=== PATIENT | female | born 1960 | race Caucasian/White ===

== ENCOUNTER → 2016-05-01 | Outpatient (CLI) | payer OTHER ==
--- NOTE | 2016-05-01 22:43 | DI ---
ULTRASOUND OF THE ANTERIOR TRIANGLE OF THE NECK, 05/01/2016 9:48 AM: Clinical History: Palpable lump in the superior aspect of the anterior triangle of the right side of the neck anterior to the origin of the sternocleidomastoid muscle. Previous Exam: None at this facility. Scans are performed through the region anterior to the mastoid bone and posterior ear bilaterally by myself. Color Doppler ultrasound was utilized. Scans were initiated with the high-resolution linear r ay probe but completed with the high-resolution high-frequency hockey-stick probe. Scans of the left side of the upper neck between the ear and mastoid bone were performed and no abnor mality is noted. The side was used as a control. Scans were performed in the same fashion through the right side where the patient indicated the lump is located. No discrete mass is identified and only fibrous type connective tissue was visualized bilaterally. Slightly inferior to the area of question on the right side is a small but normal-appearing lymph node with a fatty asymmetric hilum. This smal l lymph node is clinically palpable but no discrete mass or discernible asymmetry was palpable in eit her over the area of question or on the control side. Readin. No discernible abnormality could be identified toward the apex of the anterior triangle of the ne ck at the location where the patient indicated the lump was situated. 2. In view of the history that this abnormality has been present for 6 months, and the fact that is located between the mastoid bone and the ramus of the mandible, further imaging would be required if a more definitive evaluation of this area is desired. This can either be performed with a CT scan of the neck with IV contrast or an MRI scan of the neck.
== END ==
LOC: US 09:44
PROVIDERS: ATTEND Nurse Practitioner Family
DX: R22.1 Localized swelling, mass and lump, neck (principal)
CPT/HCPCS: 76536

== ENCOUNTER → 2016-05-02 | Outpatient (CLI) | payer OTHER ==
[2016-05-02 10:26] LABS: BASOPHILS # (AUTO) 0.04 10*3/UL; BASOPHILS % (AUTO) 0.9 % (0-1); HEMATOCRIT 42.9 % (37.0-47.0); HEMOGLOBIN 14.1 g/dL (12.0-16.0); IMM GRAN % (AUTO) 0 % (0-5); IMM GRAN# (AUTO) 0 10*3/UL; LYMPHOCYTES # (AUTO) 1.28 10*3/uL; LYMPHOCYTES % (AUTO) 30.2 % (10-50); MEAN CORPUSCULAR HEMOGLOBIN 27.2 PG (27-31); MEAN CORPUSCULAR HGB CONC 32.9 g/dL (33-37); MEAN PLATELET VOLUME 10.4 FL (7.4-12.2); MONOCYTES # (AUTO) 0.42 10*3/UL (0.3-0.8); MONOCYTES % (AUTO) 9.9 % (5-15); NEUTROPHILS # (AUTO) 2.29 10*3/UL; RDW COEFFICIENT OF VARIATION 14.1 % (11.5-14.5); RED BLOOD COUNT 5.19 10^6/uL (4.20-5.40); WHITE BLOOD COUNT 4.24 10^3/uL (4.8-10.8)
[2016-05-02 10:28] LABS: PLATELET MORPHOLOGY COMMENT NORMAL MORPHOLOGY (NORM)
[2016-05-02 10:53] LABS: ASPARTATE AMINO TRANSFERASE 57 IU/L (8-39); BILIRUBIN,TOTAL 0.5 mg/dL (0.3-1.2); BLOOD UREA NITROGEN 23 mg/dL (7-22); BUN/CREATININE RATIO 28.75 (6-20); CALCIUM 9.5 mg/dL (8.7-10.7); CHLORIDE 106 meq/L (98-112); CREATININE 0.8 mg/dL (0.50-1.20); EST GLOMERULAR FILTRATION > 60 (>60 ml/min/1.73m(2)); HDL CHOLESTEROL 100 mg/dL (40-150); POTASSIUM 4.1 meq/L (3.8-5.2); SODIUM 142 meq/L (135-145); TOTAL PROTEIN 7.6 g/dL (6.1-8.0); TRIGLYCERIDES 61 mg/dL (44-200)
[2016-05-02 11:10] LABS: FREE T4 (FREE THYROXINE) 1.2 ng/dL (0.93-1.71)
[2016-05-02 11:12] LABS: CREATININE, URINE 86.3 MG/DL (15-500)
[2016-05-02 15:42] LABS: GLUCOSE 44 mg/dL (78-110)
[2016-05-03 17:52] LABS: TISSUE TRANSGLUT AB IGA <1.2 U/mL (())
[2016-05-04 18:34] LABS: IGA SERUM 75 mg/dL (61 - 356)
== END ==
LOC: LAB 10:02
PROVIDERS: ATTEND Pediatrics Pediatric Endocrinology
DX: E10.649 Type 1 diabetes mellitus with hypoglycemia without coma (principal); Z79.4 Long term (current) use of insulin; E03.9 Hypothyroidism, unspecified; R51 Headache; R00.2 Palpitations; Z96.41 Presence of insulin pump (external) (internal)
CPT/HCPCS: 36415; 80053; 80061; 82043; 82306; 82784; 83516; 84439; 84443; 85025

== ENCOUNTER → 2016-05-08 | Outpatient (CLI) | payer OTHER | LOC: LAB 11:00 | PROVIDERS: ATTEND Nurse Practitioner Family | DX: R51 Headache (principal) | CPT/HCPCS: 36415; 85652 ==

== ENCOUNTER → 2016-05-09 | Outpatient (CLI) | payer OTHER ==
--- NOTE | 2016-05-09 14:34 | DI ---
MRI BRAIN SCAN WITHOUT CONTRAST, 05/09/2016 12:26 PM: Clinical History: Recurrent headaches. Previous Exam: None at this facility. Sequences: Sagittal T1; Axial JASPAL T2 and FLAIR. Axial diffusion weighted images with ADC mapping were also performed. The 4th, 3rd, and lateral ventricles are of normal size, shape, position, and contour for this patien t's age. There are no focal areas of abnormally increased or decreased signal intensity. Diffusion we ighted imaging with ADC mapping is normal. There is no atrophy. There are no extracerebral mantels or shift of the midline structures. The paranasal sinuses are normal. Reading: Normal noncontrast MRI brain scan.
--- NOTE | 2016-05-09 14:34 | DI ---
MR ANGIOGRAPHY OF THE [place], 05/09/2016 12:26 PM: Clinical History: Recurrent headaches. Previous Exam: None at this facility. High resolution axial 3D thin slice time of flight scans are performed for the arterial phase. 3D MIP S reconstructions are obtained. The left vertebral artery is dominant. There is no basilar tip aneurysm or aneurysm arising from the vertebral-basilar branches. Both posterior communicating arteries are large but normal. The anterior communicating artery is markedly atretic but also normal. The A1and A2, and the M1 through M3 branche s bilaterally are normal. Reading: Normal MR angiogram scan of the [place].
== END ==
LOC: MRI 12:18
PROVIDERS: ATTEND Nurse Practitioner Family
DX: R51 Headache (principal)
CPT/HCPCS: 70544; 70551

== ENCOUNTER → 2016-05-21 | Outpatient (CLI) | payer OTHER ==
--- NOTE | 2016-05-21 10:54 | DI ---
MRI ORB/FACE AND/OR NCK W/O CN,05/21/2016 9:04 AM: Clinical History: Mass in the right side of the neck. Previous Exam: CT soft tissue of the neck performed May 07, 2013 Findings: Multiplanar MR images are obtained through the neck There are multiple cervical lymph nodes none of which are pathologic by size criteria. There is one o n the right just superficial to the right masseter which is the most prominent, and measures 1.6 x 0. 6 cm. There is no evidence of fluid collection. The posterior fossa is unremarkable. The internal auditory canals are normal as well. The paranasal s inuses and intraorbital structures are unremarkable. The thyroid is within normal limits. The cervical spine demonstrates anatomic alignment. Vertebral body height is preserved. Intervertebra l disc height is also preserved. The submandibular glands and parotid glands are within normal limits . The brachial plexus is not well evaluated, but visualized portions appear normal. Signal within the s rosalba cord is also normal. There is no visible central canal nor neural foraminal narrowing. The parapharyngeal fat is normal and symmetric. Impression: 1. No definite mass. 2. There is a lymph node just superficial to the right masseter which appears to have been present on the prior exam from 2013, and does not appear to be pathological.
== END ==
LOC: MRI 09:02
PROVIDERS: ATTEND Nurse Practitioner Family
DX: R22.1 Localized swelling, mass and lump, neck (principal)
CPT/HCPCS: 70540

== ENCOUNTER 2016-06-02 18:56 | Emergency (ER) | payer OTHER ==
[2016-06-02] MEDS ORDERED: Sodium Chloride 0.9% 1,000 ML PRIMARY IV ONE ×2 (19:14→20:53)
[2016-06-02] MEDS ORDERED: NORMAL SALINE 10 ML SYRINGE FLUSH IVP PRN (19:14)
[2016-06-02 19:35] LABS: EOSINOPHILS % (AUTO) 2.5 % (0-8); HEMATOCRIT 41.4 % (37.0-47.0); HEMOGLOBIN 14.3 g/dL (12.0-16.0); MEAN CORPUSCULAR HEMOGLOBIN 27.7 PG (27-31); MEAN CORPUSCULAR HGB CONC 34.5 g/dL (33-37); MEAN PLATELET VOLUME 10.8 FL (7.4-12.2); RED BLOOD COUNT 5.16 10^6/uL (4.20-5.40)
[2016-06-02 19:37] LABS: BASOPHILS # (AUTO) 0.19 10*3/UL; BASOPHILS % (AUTO) 3.4 % (0-1); IMM GRAN % (AUTO) 0 % (0-5); IMM GRAN# (AUTO) 0 10*3/UL; LYMPHOCYTES # (AUTO) 2.19 10*3/uL; LYMPHOCYTES % (AUTO) 39.5 % (10-50); MONOCYTES # (AUTO) 0.69 10*3/UL (0.3-0.8); MONOCYTES % (AUTO) 12.5 % (5-15); NEUTROPHILS # (AUTO) 2.33 10*3/UL; NEUTROPHILS % (AUTO) 42.1 % (50-80); RDW COEFFICIENT OF VARIATION 13.8 % (11.5-14.5); WHITE BLOOD COUNT 5.54 10^3/uL (4.8-10.8)
[2016-06-02 19:46] LABS: ASPARTATE AMINO TRANSFERASE 46 IU/L (8-39); BILIRUBIN,TOTAL 0.6 mg/dL (0.3-1.2); BLOOD UREA NITROGEN 11 mg/dL (7-22); BUN/CREATININE RATIO 13.75 (6-20); C-REACTIVE PROTEIN 1.2 mg/dL (0.0-0.9); CHLORIDE 101 meq/L (98-112); CREATININE 0.8 mg/dL (0.50-1.20); EST GLOMERULAR FILTRATION > 60 (>60 ml/min/1.73m(2)); GLUCOSE 214 mg/dL (78-110); MAGNESIUM 1.6 mg/dL (1.6-2.4); POTASSIUM 3.8 meq/L (3.8-5.2); SODIUM 136 meq/L (135-145); TOTAL PROTEIN 7.3 g/dL (6.1-8.0)
--- NOTE | 2016-06-02 19:52 | PDOC ---
General Adult HPI - General Chief Complaint: Diabetic Complaint Stated Complaint: KETONES IN URINE Date Seen by Provider: 06/02/16 Time Seen by Provider: 19:10 Source: POSITIVE: Patient Exam Limitations: POSITIVE: No limitations Nurse's Notes Reviewed & Considered: Yes - History of Present Illness Initial Comment: The patient is a 55-year-old female who presents to the emergency room with concern regarding ketones in her urine. She has been a type I diabetic for 45 years and describes herself as a brittle diabetic. She states that for the past week or so she has had no appetite and has had some diarrhea. She has had some associated nausea however has not had any vomiting. She states that her intake has been markedly diminished over the past for 5 days since she's been feeling ill. Initially she was having a fair amount of loose watery stool. This seems to have tapered off now at this point. She denies any abdominal pain per se although she feels somewhat full. She denies urinary symptoms. She has not had any fevers or chills, chest pain. She states that her blood sugars have actually been running pretty good generally below 200. Her blood sugar on presentation is just above 200 which she states is the highest that it' s been all week which is good for her. She does however have a perez tone kid at home and has been running moderate ketones in her urine for the past couple of days. She has been trying to push oral fluids today however continues to have ketones in her urine which made her concerned. She has had severe diabetic ketoacidosis in the past associated with illness. This evening when she stood up she had some increased heart rate and a little bit of lightheadedness which she attributes possibly to being a little dehydrated. She does not have any known history of heart disease other than SVT. Have you received a tetanus shot in the past 10 years?: Yes - Patient Home Medications Home Medications: Home Medications Docusate Sodium [Colace] 4 cap PO QHS cap 04/20/13 Fexofenadine HCl [Amina] 1 tab PO QD tab 04/20/13 Insulin Pump Cartridge [Cartridge Stamped] 1 each SQ continuous #3 box 04/21/13 Metoclopramide HCl 2 tsp PO QID PRN #360 ml 08/24/14 Ciclopirox 6.6 ml TOPICAL DAILY #1 bottle 12/28/14 Venlafaxine HCl [Venlafaxine HCl ER] 1 cap PO DAILY #90 cap 09/04/15 Levalbuterol Tartrate [Xopenex Hfa] 1 - 2 puff INH Q6H PRN #1 inh 11/01/15 Fluticasone Propionate [Flovent Hfa] 2 puff INH BID #1 inh 01/17/16 Insulin, Lispro [Humalog] 80 unit SQ DAILY 90 Days 03/04/16 Promethazine HCl 1 tab PO Q4-6H PRN #60 tab 03/19/16 Blood-Glucose Meter [Contour Next] 1 each MC 6-12x a day #400 each 05/21/16 Glucagon,Human Recombinant [Glucagon Emergency Kit] 1 mg IJ ONCE #2 each Insulin Glargine SoloStar Inj [Lantus Solostar Inj] 4 units SUBCUT BID #1 box Insulin Lispro Flexpen Inj [Humalog Flexpen Inj] 8 unit SQ AC #1 box 05/21/16 Levothyroxine Sodium 1 tab PO DAILY #90 tab 05/21/16 Urine Acetone Test,Strips [Ketone] 1 each QAM #50 strip 05/21/16 Lidocaine [Lidoderm] 1 patch TRANSDERM DAILY #90 patch 05/23/16 Olopatadine HCl [Patanol] 1 drop EACH EYE QD #3 bottle 05/28/16 - Patient Allergies Allergies/Adverse Reactions: Allergies Allergy/AdvReac Type Severity Reaction Status Date / Time bacitracin zinc Allergy Intermediate burn,bliste Verified 06/02/16 19:08 [From Neosporin r ([id number])] neomycin sulfate Allergy Intermediate burn,bliste Verified 06/02/16 19:08 [From Neosporin r ([id number])] polymyxin B Allergy Intermediate burn,bliste Verified 06/02/16 19:08 [From Neosporin r ([id number])] bacitracin Allergy blister,bur Verified 06/02/16 19:08 n povidone-iodine Allergy .BURNING Verified 06/02/16 19:08 [From Betadine] soap [From Betadine] Allergy .BURNING Verified 06/02/16 19:08 Sulfa (Sulfonamide Allergy HIVES Verified 06/02/16 19:08 Antibiotics) Past Medical History - heen HEENT History: Cataracts Cardiovascular History: Denies History Respiratory History: Denies History Additional Respiratory History: ACUTE BRONCHITIS Gastrointestinal History: Other (please comment) Additional Gastrointestinal History: GASTROPARESIS/DIFFICULTY SWALLOWING Genitourinary History: Denies History Endocrine History: Type 1 Diabetes, Hypothyroidism Additional Endocrine History: GOITER Musculoskeletal History: Arthritis Prosthesis or Implant: Yes (L THUMB) Neurological History: Denies History Blood Disorders: Denies History Psychiatric History: Denies History History of Sexually Transmitted Diseases: No Cancer History: Denies History History of MDRO: No History of Other Communicable Diseases: Yes (MEASLES, VARICELLA) Alcohol Use: None Substance Use Type: None Previous Surgical History: Yes Type / Date of Surgery: R CARPAL TUNNEL RELEASE 1999/TRIGGER FINGER X10 FROM [id number]/LEFT KNEE SCOPE 2009/SHOULDER SCOPE RELEASE LEFT FROZEN SHOULDER 2006/ SINUS SURGERY 1993 Anesthesia Reactions: No Malignant Hyperthermia: No Significant Family History: No pertinent family hx Past Medical History Reviewed: Reviewed - No Changes ROS - Limitations ROS Limitations: No Limitations Constitution: DENIES: Chills, Fever Cardiovascular: REPORTS: Heart Palpitations. DENIES: Chest Pain, Blood Pressure Problem, Edema Respiratory: DENIES: Cough Non Productive, Cough Productive Neurological: REPORTS: Dizziness. DENIES: Headache, Numbness, Weakness Gastrointestinal: REPORTS: Nausea, Diarrhea, Black Stools (She had some dark stringy stools the last couple of days although no BM today). DENIES: Abdominal Pain, Vomitting Musculoskeletal: REPORTS: Denies MS Symptoms Genitourinary: REPORTS: Denies Symptoms Eyes: REPORTS: Denies Symptoms ENT: REPORTS: Denies Symptoms Skin: DENIES: Rash General Adult Exam - General Appearance General Appearance: POSITIVE: Alert, Cooperative, No Acute Distress - HEENT HEENT: POSITIVE: Head Inspection Nml, Pharynx Inspect. Nml, Dry Mucous Membranes - Neck Neck: POSITIVE: Normal Inspection. NEGATIVE: Lymphadenopathy - Respiratory Respiratory: POSITIVE: No Respiratory Distress, Breath Sounds Normal - Cardiovascular Cardiovascular: POSITIVE: Regular Rate & Rhythm, No Murmur Peripheral Pulses: Dorsalis-pedis (R): 2+, Dorsalis-pedis (L): 2+ - Abdomen Abdomen: Soft: (All Quadrants), Denies Tenderness: (All Quadrants), No Distention: (All Quadrants) - Back Back: NEGATIVE: CVA Tenderness - Skin Skin: POSITIVE: Normal Color. NEGATIVE: Rash - Extremities Extremity: Normal ROM: (All Extremities), Normal Inspection: (All Extremities) General Adult Progress - Results Reviewed by me Lab Results Reviewed: Yes Lab Results:: Laboratory Results 06/02/16 06/02/16 06/02/16 Range/Units 19:27 19:30 20:35 WBC 5.54 (4.8-10.8) 10^3/uL RBC 5.16 (4.20-5.40) 10^6/uL Hgb 14.3 (12.0-16.0) g/dL Hct 41.4 (37.0-47.0) % MCV 80.2 L (81-99) FL MCH 27.7 (27-31) PG MCHC 34.5 (33-37) g/dL RDW Std Deviation 40.2 (39-50) fL RDW Coeff of Pattie 13.8 (11.5-14.5) % Plt Count 254 (140-350) 10*3/uL MPV 10.8 (7.4-12.2) FL Immature Gran % (Auto) 0 (0-5) % Neut % (Auto) 42.1 L (50-80) % Lymph % (Auto) 39.5 (10-50) % [place] % (Auto) 12.5 (5-15) % Eos % (Auto) 2.5 (0-8) % Baso % (Auto) 3.4 H (0-1) % Immature Gran # (Auto) 0 10*3/UL Neut # (Auto) 2.33 10*3/UL Lymph # (Auto) 2.19 10*3/uL [place] # (Auto) 0.69 (0.3-0.8) 10*3/UL Eos # (Auto) 0.14 10*3/UL Baso # (Auto) 0.19 10*3/UL WBC Morphology Comment See comments (NORM) Plt Morphology Comment Normal morphology (NORM) RBC Morph Comment Normal morphology (NORM) VBG pH 7.39 (7.32-7.42) VBG pCO2 34 L (45-55) mmHg VBG HCO3 20 L (22-26) mmol/L VBG Base Excess -5 L (-2-2) MMOL/L Sodium 136 (135-145) meq/L Potassium 3.8 (3.8-5.2) meq/L Chloride 101 (98-112) meq/L Carbon Dioxide 23 (23-33) meq/L Anion Gap 12 (5-20) BUN 11 (7-22) mg/dL Creatinine 0.8 (0.50-1.20) mg/dL Estimated GFR > 60 (>60 ml/min/1.73m(2)) BUN/Creatinine Ratio 13.75 (6-20) Glucose 214 H (78-110) mg/dL Calculated Osmolality 286.0 (267-292) mOsm/kg Calcium 9.0 (8.7-10.7) mg/dL Magnesium 1.6 (1.6-2.4) mg/dL Total Bilirubin 0.6 (0.3-1.2) mg/dL AST 46 H (8-39) IU/L ALT 65 H (9-52) IU/L Alkaline Phosphatase 99 (38-126) IU/L C-Reactive Protein 1.2 H (0.0-0.9) mg/dL Total Protein 7.3 (6.1-8.0) g/dL Albumin 4.0 (3.5-4.8) g/dL Globulin 3.3 (2.50-4.10) g/dL Albumin/Globulin Ratio 1.20 L (1.3-2.0) mg/g Ur Collection Type Clean catch urine Urine Color Yellow Urine Clarity Clear (CLEAR) Urine pH 5.5 (5.0-8.5) Ur Specific [place] 1.006 (1.005-1.030) Urine Protein Negative (NEG) mg/dl Urine Glucose (UA) 100 (NEG) mg/dL Urine Ketones 40 (NEG) Urine Occult Blood Negative (NEG) Urine Nitrate Negative (NEG) Urine Bilirubin Negative (NEG) Urine Urobilinogen 0.2 (0.2) EU/dL Ur Leukocyte Esterase Negative (NEG) Ur Culture Indicated? Culture not set - Patient's Progress MDM / ED Course: Initial orthostatic vital signs are unremarkable. An IV was established and she did receive a 1 L bolus of normal saline. Her initial venous blood gas revealed a normal pH of 7.39 with a bicarbonate of 20. Her other blood work was all essentially unremarkable as well and urinalysis was negative for infection. She did continue to have some ketones in her urine. At this point the ketosis is most likely secondary to lack of oral intake over the past 4 or 5 days. She does not have any evidence of diabetic ketoacidosis. Her liver enzymes were also mildly elevated however this was noted on a previous blood draw and has improved slightly. The exact etiology of her stomach upset and diarrhea is unclear however may be viral in etiology. Her diarrhea seems to have significantly decreased over the past 24 hours. She is advised to continue to push fluids. She did receive a second liter of normal saline here prior to discharge. She will return to the emergency room she develops any increased abdominal pain, dehydration, elevated blood sugar, any worsening or change in symptoms. She'll follow-up with primary care in 2-3 days. - Consult Counseled: POSITIVE: Patient, Family, RE: Lab Results, RE: Radiology Results, RE : DX, RE: Need for F/U Patient Care Time - Estimated PCT Patient Care Time (In Minutes): 25 Vital Signs - Recent Vital Signs Vital Signs: Vital Signs (Last 8 hours) Temp Pulse Pulse Pulse Pulse Resp BP 06/02/16 20:28 67 66 75 06/02/16 19:20 79 83 85 06/02/16 18:56 97.7 F 100 18 165/81 BP BP BP Pulse Ox 06/02/16 20:28 142/69 137/69 136/69 06/02/16 19:20 145/69 142/81 148/77 06/02/16 18:56 95 - VS Reviewed Vital Signs Reviewed: Yes Discharge Clinical Impression: Dehydration, Enteritis, Diabetes type I Condition: Stable Patient Instructions Given at Discharge: Dehydration (ED), Type 1 Diabetes in Adults (ED) Additional Instructions: The blood work done here in the emergency room does not show any evidence of diabetic ketoacidosis. The ketones in the urine or likely secondary to recent decreased oral intake and dehydration as well as lack of oral intake. Continue to push fluids. Monitor blood sugars. Return to the emergency room if elevated blood sugar, increased abdominal pain, fever, continued diarrhea or dehydration, any worsening or change in symptoms. Follow-up with primary care in 2-3 days. Follow Up With: ZURDO WELLS [Primary Care Provider] -
[2016-06-02 19:54] VITALS: RESP 18; TEMP 97.7
[2016-06-02 20:01] LABS: PLATELET MORPHOLOGY COMMENT NORMAL MORPHOLOGY (NORM)
[2016-06-02 20:38] LABS: BILIRUBIN,URINE NEGATIVE (NEG); CLARITY,URINE CLEAR (CLEAR); GLUCOSE, URINE (UA) 100 mg/dL (NEG); LEUKOCYTE ESTERASE ,URINE NEGATIVE (NEG); NITRATE,URINE NEGATIVE (NEG); OCCULT BLOOD,URINE NEGATIVE (NEG); PH,URINE 5.5 (5.0-8.5); PROTEIN,URINE NEGATIVE (NEG); UROBILINOGEN,URINE 0.2 EU/dL (0.2)
[2016-06-02 20:42] LABS: URINE SAMPLE TYPE CLEAN CATCH URINE
== END 2016-06-02 21:38 | disposition home or self-care (01) ==
LOC: ER 18:56
DX: E86.0 Dehydration (principal); K52.9 Noninfective gastroenteritis and colitis, unspecified; E10.69 Type 1 diabetes mellitus with other specified complication; Z79.4 Long term (current) use of insulin
CPT/HCPCS: 36415; 80053; 81003; 82803; 83735; 85025; 86140; 96360; 96361; 99282; 99283; J7030

== ENCOUNTER 2016-08-19 08:03 | Day surgery (SDC) | payer OTHER ==
[~2016-08-19 08:03] MED LIST: LIDOCAINE 2% VISCOUS(20 MG/1 ML) - 15 ML UD CUP PO ONE; LIDOCAINE HCL/PF 2% (20 MG/ML) - 5 ML SYRINGE ONE; MIDAZOLAM 5 MG/1 ML ONE; fentaNYL Inj 100 MCG/2 ML VIAL ONE
[2016-08-19] MEDS ORDERED: LIDOCAINE W/ SODIUM BICARB 0.5 ML SYR ONE (08:07)
[2016-08-19] MEDS ORDERED: Lactated Ringers 1,000 ML PRIMARY IV ONE (08:07)
--- NOTE | 2016-08-19 10:29 | GEN.OPNOTE ---
EGD Operative Note Surgery Date: 08/19/16 Preoperative Diagnosis: Dysphasia Postoperative Diagnosis: Dysphasia. Benign esophageal stricture. Esophageal ulcers Procedure: Esophagogastroduodenoscopy with balloon dilation Surgeon: Theo Pate MD Anesthesia Provider: Morris Mann CRNA Anesthesia Type: MAC Indications: Patient food stuck in her throat. This cleared on its own. Findings: Esophagus: Olympus video EGD scope inserted into the posterior pharynx. Cut ends esophagus under direct visualization. Patient's esophagus was normal except just at the GE junction. She had what appeared to be a benign esophageal stricture with some shallow ulcerations that appear to be healing. GE Junction : GE junction proximal be 40 cm from incisors Fundus : Scope right flexor on itself feeling normal fundus Body : Body was within normal limits Prepyloric : Prepyloric areas within normal limits Small Intestine : First second portion of duodenum within normal limits The scope brought back up to the GE junction. I then placed a balloon dilator through the scope across the GE junction. I then progressively dilated the balloon out to 20 mm. A lubricated flexible upper endoscope was inserted and passed through the esophagus and stomach into the duodenum. Fluids: Please see anesthesia notes in EMR Pathology: None sent
[2016-08-19 11:07] VITALS: RESP 12
[2016-08-19 13:47] VITALS: TEMP 97.6
== END 2016-08-19 11:35 | disposition home or self-care (01) ==
LOC: SDSC 08:03
PROVIDERS: ATTEND Surgery
DX: R13.10 Dysphagia, unspecified (principal); K22.2 Esophageal obstruction; K22.10 Ulcer of esophagus without bleeding
CPT/HCPCS: 43249; J2704; J3010; J2001; J2250; J7120

== ENCOUNTER → 2016-10-14 | Outpatient (CLI) | payer OTHER ==
[2016-10-14 10:29] LABS: BASOPHILS # (AUTO) 0.07 10*3/UL; BASOPHILS % (AUTO) 1.3 % (0-1); EOSINOPHILS % (AUTO) 5.5 % (0-8); HEMATOCRIT 41.3 % (37.0-47.0); HEMOGLOBIN 13.3 g/dL (12.0-16.0); LYMPHOCYTES # (AUTO) 1.36 10*3/uL; MEAN CORPUSCULAR HEMOGLOBIN 27.3 PG (27-31); MEAN CORPUSCULAR HGB CONC 32.2 g/dL (33-37); MEAN CORPUSCULAR VOLUME 84.8 FL (81-99); MEAN PLATELET VOLUME 11.1 FL (7.4-12.2); MONOCYTES # (AUTO) 0.61 10*3/UL (0.3-0.8); MONOCYTES % (AUTO) 11.2 % (5-15); NEUTROPHILS # (AUTO) 3.13 10*3/UL; NEUTROPHILS % (AUTO) 57.1 % (50-80); RED BLOOD COUNT 4.87 10^6/uL (4.20-5.40)
[2016-10-14 10:36] LABS: PLATELET MORPHOLOGY COMMENT NORMAL MORPHOLOGY (NORM); RBC MORPHOLOGY COMMENT NORMAL MORPHOLOGY (NORM); WBC MORPHOLOGY COMMENT NORMAL MORPHOLOGY (NORM)
[2016-10-14 10:46] LABS: BLOOD UREA NITROGEN 25 mg/dL (7-22); BUN/CREATININE RATIO 27.77 (6-20); CALCIUM 8.8 mg/dL (8.7-10.7); CHOL/HDL RATIO 2.23 RATIO (0-4.0); EST GLOMERULAR FILTRATION > 60 (>60 ml/min/1.73m(2)); HDL CHOLESTEROL 104 mg/dL (40-150); HEMOGLOBIN A1C 7.01 % (4.2-6.0); MAGNESIUM 1.6 mg/dL (1.6-2.4); SERUM ALBUMIN 3.8 g/dL (3.5-4.8); SERUM CHOLESTEROL 232 mg/dL (120-200)
[2016-10-14 10:58] LABS: CREATININE, URINE 106.2 MG/DL (15-500)
[2016-10-14 12:04] LABS: FREE T4 (FREE THYROXINE) 1.63 ng/dL (0.93-1.71)
== END ==
LOC: MOB LAB 09:07
PROVIDERS: ATTEND Internal Medicine
DX: E10.9 Type 1 diabetes mellitus without complications (principal); Z79.4 Long term (current) use of insulin; R00.2 Palpitations; E78.5 Hyperlipidemia, unspecified; R53.83 Other fatigue; E03.9 Hypothyroidism, unspecified
CPT/HCPCS: 36415; 80053; 80061; 82043; 82550; 83036; 83735; 84439; 84443; 85025

== ENCOUNTER → 2016-10-23 | Outpatient (CLI) | payer OTHER ==
--- NOTE | 2016-10-29 10:44 | HOLTER ---
[facility] [place] Interpretive Statements This is a 48 hour Holter study done for "palpitations." A diary reports 5 "events" with 3 mentioning symptoms of: "Blood sugar going down, racing heart", "sitting--rate normalized", and "standing in friend's kitchen, racing". The last event did correlate with prolonged PSVT at rate of over 300 BPM for over 20 seconds superimposed on possible atrial flutter with 46 minutes of rate 157 BPM. The other 2 events with no symptoms reported correlated with NSR at normal rates. There were only 13 possible ventricular ectopics. IMPRESSION: Abnormal Holter study with SVT and possible atrial flutter with episodes of 1:1 conduction that at least once did correlate with symptoms. SUGGEST Cardiology consult, avoidance of stimulants, thyroid studies if not done. Electronically Signed On 10-29-16 11:15:55 MDT by Sudhakar Zimmer MD [email or web address]
== END ==
LOC: RT 12:53
PROVIDERS: ATTEND Internal Medicine
DX: R00.2 Palpitations (principal)
CPT/HCPCS: 93225; 93226; 93227

== ENCOUNTER → 2016-12-04 | Outpatient (CLI) | payer OTHER | LOC: SLEEP LAB 20:05 | PROVIDERS: ATTEND Nurse Practitioner Family | DX: G47.33 Obstructive sleep apnea (adult) (pediatric) (principal); G47.34 Idiopathic sleep related nonobstructive alveolar hypoventilation | CPT/HCPCS: 95811 ==

== ENCOUNTER 2017-05-27 11:38 | Observation (INO) ==
--- NOTE | 2017-05-27 12:59 | DI ---
PA /LATERAL CHEST X-RAY, 05/27/2017 12:26 PM : Clinical History: Fever. Cough. Previous Exam: None at this facility. There is no acute soft tissue or bony abnormality. Heart size is normal. There is increased density i n the right middle lobe territory consistent with either atelectasis or a very early pneumonia. No pl eural effusions are noted. Mediastinal structures are normal. There are no pulmonary nodules. Reading: There is either atelectasis or a very early pneumonia in the right middle lobe.
--- NOTE | 2017-05-27 13:46 | PDOC ---
Upper Respiratory HPI - General Chief Complaint: Cough / URI Stated Complaint: COUGH/WINN/BODY ACHES/FEVER/CHILLS x6 DAYS Date Seen by Provider: 05/27/17 Time Seen by Provider: 13:00 Source: POSITIVE: Patient - History of Present Illness Initial Comments: This is a very nice 56-year-old woman who presents to the emergency department with several days worth of cough and fever and chills and feeling very poorly. Shehe thought maybe she was improving some and then today got substantially worse to the point she's not able to get up and around very well she feels extremely wiped out. She has a very harsh and somewhat productive cough and get short of breath after cough. She has type II diabetes. She has not had history of pneumonia in the past has not had significant respiratory illness or chronic disease at all the past. - Patient Home Medications Home Medications: Home Medications Insulin Pump Cartridge [Cartridge Stamped] 1 ea SQ continuous #3 box 04/21/13 Olopatadine HCl [Patanol] 1 drp EACH EYE QD #3 bottle 05/28/16 Lidocaine [Lidoderm] 1 patch TRANSDERM DAILY #90 patch 10/01/16 Promethazine HCl 1 tab PO Q4-6H PRN #60 tab 10/01/16 Levothyroxine Sodium 1 tab PO DAILY #90 tab 10/14/16 Venlafaxine HCl [Venlafaxine Hcl Er] 1 cap PO DAILY #30 cap 10/22/16 lidocaine 5 % topical patch 1 patch TRANSDERM QDAY #1 patch 12/09/16 venlafaxine ER 150 mg capsule,extended release 24 hr 150 mg PO QDAY #90 cap promethazine 25 mg tablet 25 mg PO Q4-6H PRN #60 tab 12/18/16 docusate sodium 100 mg capsule 400 mg PO QHS cap 01/29/17 ciclopirox 8 % topical solution 1 applic TOPICAL QDAY #1 bottle 03/14/17 estradiol 10 mcg vaginal tablet 10 mcg VAGINAL 3XW #36 tab 03/14/17 fexofenadine 180 mg tablet 180 mg PO QDAY tab 03/14/17 famotidine 20 mg tablet 20 mg PO BID #120 tab 05/05/17 Synthroid 125 mcg tablet 125 mcg PO .qod #30 tab NS 05/16/17 Synthroid 137 mcg tablet 137 mcg PO .qod #30 tab NS 05/16/17 clobetasol 0.05 % topical ointment 1 applic TOPICAL BID PRN #60 g 05/19/17 fluticasone 44 mcg/actuation HFA aerosol inhaler 2 inh INH BID #1 inh 05/19/17 insulin lispro 100 unit/mL subcutaneous pen 8 unit SQ AC #1 box 05/19/17 levalbuterol HFA 45 mcg/actuation aerosol inhaler 2 puff INH Q6H PRN #3 inh 08/29 metoclopramide 5 mg/5 mL oral solution 10 mg PO QID PRN #360 ml 05/19/17 insulin lispro 100 unit/mL subcutaneous solution 80 unit SUBCUT QDAY 90 Days #9 vial 05/20/17 acetone (urine) test strips 1 strip MISCELLANEOUS QAM strip 05/22/17 blood sugar diagnostic strips 1 strip MISCELLANEOUS 6-12x/day strip 05/22/17 blood-glucose meter 1 ea MISCELLANEOUS 6-12x/day ea 05/22/17 glucagon (human recombinant) 1 mg injection kit 1 mg IM ONCE PRN ea 05/22/17 insulin glargine 100 unit/mL (3 mL) subcutaneous pen 4 unit SUBCUT BID PRN #3 ml 05/22/17 - Patient Allergies Allergies/Adverse Reactions: Allergies 3 Allergy/AdvReac Type Severity Reaction Status Date / Time bacitracin zinc Allergy Intermediate burn,bliste Verified 05/27/17 12:21 [From Neosporin r ([id number])] neomycin sulfate Allergy Intermediate burn,bliste Verified 05/27/17 12:21 [From Neosporin r ([id number])] polymyxin B Allergy Intermediate burn,bliste Verified 05/27/17 12:21 [From Neosporin r ([id number])] bacitracin Allergy blister,bur Verified 05/27/17 12:21 n povidone-iodine Allergy .BURNING Verified 05/27/17 12:21 [From Betadine] soap [From Betadine] Allergy .BURNING Verified 05/27/17 12:21 Sulfa (Sulfonamide Allergy HIVES Verified 05/27/17 12:21 Antibiotics) Past Medical History - heen HEENT History: Cataracts Additional HEENT History: GLASSES Cardiovascular History: Hyperlipidemia Additional Cardiovasular History: SVT, pt reports able to convert to sinus rhythm by vagal or massage. AVNRT Respiratory History: Denies History Additional Respiratory History: ACUTE BRONCHITIS. REACTIVE AIRWAY DISEASE. JP Gastrointestinal History: Other (please comment) Additional Gastrointestinal History: GASTROPARESIS/DIFFICULTY SWALLOWING. 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 HASHIMOTOS THROIDITIS Musculoskeletal History: Arthritis, Osteoarthritis Prosthesis or Implant: Yes (L THUMB) Additional Musculoskeletal History: left shoulder, knee scopes, bilateral hand surgery, left thumb Neurological History: Denies History Blood Disorders: Denies History, Other (please comment) Additional Blood Disorders History: VITAMIN D DEFICIENCY Psychiatric History: Depression History of Sexually Transmitted Diseases: No Cancer History: Denies History In Past Year Been Physically Harmed or Verbally Threatened: No History of MDRO: No History of Other Communicable Diseases: Yes (MEASLES, VARICELLA) Tobacco Use: Never Smoker Alcohol Use: None In the Past 12 Months, Have Used or Abuse Any Substance: None Previous Surgical History: Yes Type / Date of Surgery: COLONOSCOPY/EGD/R CARPAL TUNNEL RELEASE 1999/TRIGGER FINGER X10 FROM [id number]/LEFT KNEE SCOPE 2009/SHOULDER SCOPE RELEASE LEFT FROZEN SHOULDER 2006/SINUS SURGERY 1993/ LEFT THUMB. ESOPHAGEAL DILATION Anesthesia Reactions: No Malignant Hyperthermia: No Significant Family History: No pertinent family hx Past Medical History Reviewed: Reviewed - No Changes ROS - Limitations ROS Limitations: No Limitations Constitution: REPORTS: Chills, Fever Cardiovascular: REPORTS: Denies Cardiac Symptoms Respiratory: REPORTS: Cough Productive, Shortness Of Breath Neurological: REPORTS: Denies Neuro Symptoms Gastrointestinal: REPORTS: Denies GI Symptoms Genitourinary: REPORTS: Denies Symptoms Upper Respiratory/Fever Exam - General Appearance General Appearance: REPORTS: Alert, Cooperative - HEENT HEENT: POSITIVE: Head Inspection Nml - Respiratory Respiratory: REPORTS: Other (Some coarse rhonchi bilaterally diminished breath sounds in the bases) - Abdomen Abdomen: Soft: (All Quadrants), Normal Bowel Sounds: (All Quadrants), Denies Tenderness: (All Quadrants) - Cardiovascular Cardiovascular: REPORTS: Regular Rate and Rhythm - Skin Skin: REPORTS: Intact, Normal For Race, Warm, Dry - Neurological / Psychological Neurological: POSITIVE: Affect Apporpriate Upper Resp/Fever Progress - Results Reviewed by me Xrays/CTs/US Reviewed by me: Yes Radiology Findings: slight rml infiltrate Lab Results Reviewed by Me: Yes - Patient's Progress MDM / ED Course: This patient looks pretty ill. With rest her oxygen saturations dipped down into the 85 range. She had a normal white count with a normal differential so most likely is all related to a severe influenza. She does however have substantial risk of having a superimposed bacterial illness that may be very early on. I think the better part of messi is to go ahead and start her on some Tamiflu though we may be outside the window to get substantial benefit from it we should probably also monitor her here in the hospital at least the night to make sure that her oxygenation status improved to make sure her white count doesn't bump case will be discussed with the hospitalist. And 2 help provide supplemental oxygen. Patient Care Time - Estimated PCT Patient Care Time (In Minutes): 35 Vital Signs - VS Reviewed Vital Signs Reviewed: Yes Discharge Condition: Fair Follow Up With: CONRAD WELLS [Primary Care Provider] -
[2017-05-27 13:54] LABS: BASOPHILS # (AUTO) 0.04 10*3/UL; BASOPHILS % (AUTO) 0.8 % (0-1); EOSINOPHILS # (AUTO) 0.09 10*3/UL; EOSINOPHILS % (AUTO) 1.8 % (0-8); Hematocrit [HCT] 41.4 % (37.0-47.0); Hemoglobin [HGB] 13.4 g/dL (12.0-16.0); LYMPHOCYTES # (AUTO) 0.88 10*3/uL; MEAN CORPUSCULAR HEMOGLOBIN 27.5 PG (27-31); MEAN CORPUSCULAR HGB CONC 32.4 g/dL (33-37); MEAN CORPUSCULAR VOLUME 84.8 FL (81-99); MEAN PLATELET VOLUME 10.4 FL (7.4-12.2); MONOCYTES # (AUTO) 0.67 10*3/UL (0.3-0.8); MONOCYTES % (AUTO) 13.6 % (5-15); NEUTROPHILS # (AUTO) 3.22 10*3/UL; NEUTROPHILS % (AUTO) 65.7 % (50-80); RED BLOOD COUNT 4.88 10^6/uL (4.20-5.40)
[2017-05-27 13:56] LABS: PLATELET MORPHOLOGY COMMENT NORMAL MORPHOLOGY (NORM); RBC MORPHOLOGY COMMENT NORMAL MORPHOLOGY (NORM); WBC MORPHOLOGY COMMENT NORMAL MORPHOLOGY (NORM)
[2017-05-27 14:10] LABS: BLOOD UREA NITROGEN 12 mg/dL (7-22); BUN/CREATININE RATIO 17.14 (6-20)
[2017-05-27] MEDS ORDERED: OSELTAMIVIR PHOSPHATE 75 MG CAPSULE PO ONE (14:18)
[2017-05-27] MEDS ORDERED: NORMAL SALINE 10 ML SYRINGE FLUSH IVP PRN ×2 (14:44→17:50)
[2017-05-27] MEDS ORDERED: Sodium Chloride 0.9% 1,000 ML PRIMARY IV ONE (14:44)
[2017-05-27] MEDS ORDERED: cefTRIAXone Inj 2 GM in Sodium Chloride 0.9% 100 ML IV ONE (14:44)
--- NOTE | 2017-05-27 15:49 | PDOC ---
HPI - History of Present Illness Date of Service: 05/27/17 Time of Service: 19:00 Chief Complaint: Cough, weakness, low-grade fever one day duration. History of Present Illness: This is a 56 years old female with medical history significant for history of diabetes type I on insulin pump, hypothyroidism and history of esophageal stricture that needed dilatation before who came into the hospital with history of cough not feeling well, weak that started yesterday. She said a few days ago she started to have symptoms of cold with runny nose hoarse voice but yesterday started to cough and feels very weak today didn't eat since yesterday because of that she came into the ER. Evaluation in the ER suggested maybe early pneumonia on the x-ray so she was given antibiotics and was admitted. She denied chest pain, there is no dizziness. No diarrhea no vomiting. Past Medical History Medical History: 1. Type I diabetes on insulin pump. 2. Hypothyroidism. 3. History of esophageal stricture status post dilatation. 4. History of palpitation secondary to SVT she is planning to have a an ablation at one point in time. 5. Sleep apnea on CPAP Family History: Reviewed an Not Pertinent Past Social History: Does not smoke, does not drink. No drugs. to Dr. Batista. Tobacco Use: Never Smoker In the Past 12 Months, Have Used or Abuse Any of the Following Substance: None Alcohol Use: None Medication / Allergies Home Medications: Home Medications 3 Medication Instructions Recorded Confirmed Type Insulin Pump Cartridge [Cartridge 1 ea SQ continuous #3 box 04/21/13 05/27/17 History Stamped] Olopatadine HCl [Patanol] 1 drp EACH EYE QD #3 bottle 05/28/16 05/27/17 Rx Lidocaine [Lidoderm] 1 patch TRANSDERM DAILY #90 patch 10/01/16 Clinic Promethazine HCl 1 tab PO Q4-6H PRN #60 tab 10/01/16 Clinic Levothyroxine Sodium 1 tab PO DAILY #90 tab 10/14/16 Clinic Estrogens, Conj Vaginal Cream 1 unit VAGINAL PRN #2 #2 Samples 10/22/16 Sample [Premarin Vaginal Cream] Sample Venlafaxine HCl [Venlafaxine Hcl 1 cap PO DAILY #30 cap 10/22/16 Clinic Er] lidocaine 5 % topical patch 1 patch TRANSDERM QDAY #1 patch 12/09/16 05/27/17 Clinic venlafaxine ER 150 mg 150 mg PO QDAY #90 cap 12/09/16 05/27/17 Clinic capsule,extended release 24 hr promethazine 25 mg tablet 25 mg PO Q4-6H PRN #60 tab 12/18/16 05/27/17 Rx docusate sodium 100 mg capsule 400 mg PO QHS cap 01/29/17 05/27/17 History ciclopirox 8 % topical solution 1 applic TOPICAL QDAY #1 bottle 03/14/17 History estradiol 10 mcg vaginal tablet 10 mcg VAGINAL 3XW #36 tab 03/14/17 05/27/17 Rx fexofenadine 180 mg tablet 180 mg PO QDAY tab 03/14/17 05/27/17 History famotidine 20 mg tablet 20 mg PO BID #120 tab 05/05/17 05/27/17 Rx Synthroid 125 mcg tablet 125 mcg PO .qod #30 tab NS 05/16/17 05/27/17 Rx Synthroid 137 mcg tablet 137 mcg PO .qod #30 tab NS 05/16/17 05/27/17 Rx clobetasol 0.05 % topical ointment 1 applic TOPICAL BID PRN #60 g 05/19/1705/27 Rx fluticasone 44 mcg/actuation HFA 2 inh INH BID #1 inh 05/19/17 05/27/17 Rx aerosol inhaler insulin lispro 100 unit/mL 8 unit SQ AC #1 box 05/19/17 05/27/17 Rx subcutaneous pen levalbuterol HFA 45 mcg/actuation 2 puff INH Q6H PRN #3 inh 05/19/17 05/27/17 Rx aerosol inhaler metoclopramide 5 mg/5 mL oral 10 mg PO QID PRN #360 ml 05/19/17 05/27/17 Rx solution insulin lispro 100 unit/mL 80 unit SUBCUT QDAY 90 Days #9 vial 05/20/17 Rx subcutaneous solution acetone (urine) test strips 1 strip MISCELLANEOUS QAM strip 05/22/17 05/27/17 History blood sugar diagnostic strips 1 strip MISCELLANEOUS 6-12x/day 05/22/17 05/27/17 History strip blood-glucose meter 1 ea MISCELLANEOUS 6-12x/day ea 05/22/17 05/27/17 History glucagon (human recombinant) 1 mg 1 mg IM ONCE PRN ea 05/22/17 05/27/17 History injection kit insulin glargine 100 unit/mL (3 4 unit SUBCUT BID PRN #3 ml 05/22/17 05/27/17 Rx mL) subcutaneous pen Allergies/Adverse Reactions: Allergies 3 Allergy/AdvReac Type Severity Reaction Status Date / Time bacitracin zinc Allergy Intermediate burn,bliste Verified 05/28/17 07:52 [From Neosporin r ([id number])] neomycin sulfate Allergy Intermediate burn,bliste Verified 05/28/17 07:52 [From Neosporin r ([id number])] polymyxin B Allergy Intermediate burn,bliste Verified 05/28/17 07:52 [From Neosporin r ([id number])] bacitracin Allergy blister,bur Verified 05/28/17 07:52 n povidone-iodine Allergy .BURNING Verified 05/28/17 07:52 [From Betadine] soap [From Betadine] Allergy .BURNING Verified 05/28/17 07:52 Sulfa (Sulfonamide Allergy HIVES Verified 05/28/17 07:52 Antibiotics) Review of Systems - Review of Systems All Systems: Reviewed & No Additional Complaints Except as Stated Exam - General Additional General Exam Details: Looks weak, hoarse voice - Head Head Exam: Normal Inspection - Eye Eye Exam: POSITIVE: Normal Appearance - ENT ENT Exam: POSITIVE: Normal Exam - Neck Neck Exam: Normal Inspection - Respiratory Additional Respiratory Exam Details: Decreased air entry otherwise clear. - Cardiovascular Cardiovascular Exam: POSITIVE: RRR - GI/Abdominal GI/Abdominal Exam: POSITIVE: Normal Bowel Sounds, Non Tender, Non Distended, No Organomegaly - Rectal Rectal Exam: POSITIVE: Deferred - External Exam: POSITIVE: Deferred - Extremities Extremities Exam: POSITIVE: Normal Inspection - Back Back Exam: POSITIVE: Normal Inspection - Neurological Neurological Exam: POSITIVE: Alert, Oriented x 3, CN II-XII Intact, No Facial Droop, Moves All Extremities Equally - Psychiatric Psychiatric Exam: POSITIVE: Normal Affect Results - Labs CBC and BMP: 05/28/17 04:26 05/27/17 13:53 - Imaging Status: Report Reviewed by Me (There is either atelectasis or a very early pneumonia in the right middle lobe.) Assessment and Plan - Patient Problems (1) Pneumonia Current Visit: Yes Status: Acute Comment: She was given Zithromax and the Rocephin after taking blood culture. We'll continue with those. We'll give her some IV fluid. Will repeat her labs in the morning. Code(s): J18.9 - Pneumonia, unspecified organism (2) Diabetes mellitus type 1 Current Visit: No Status: Chronic Comment: Continue insulin pump. Use home protocol. (3) Hypothyroidism Current Visit: Yes Status: Acute Comment: Same medications Code(s): E03.9 - Hypothyroidism, unspecified
[2017-05-27] MEDS ORDERED: LIDOCAINE W/ SODIUM BICARB 0.5 ML SYR SUBD PRN (17:50)
[2017-05-27] MEDS ORDERED: Metoclopramide Tab 10 MG TAB PO PRN (17:52)
[2017-05-27] MEDS: DOCUSATE 100 MG CAPSULE PO SCH (19:38)
[2017-05-27] MEDS: FLUTICASONE PROPIONATE INH SCH (19:45)
[2017-05-27] MEDS: FAMOTIDINE 20 MG TABLET PO SCH (20:05)
[2017-05-27] MEDS: LEVALBUTEROL HCL 0.63 MG/3 ML NEB PRN (21:03)
[2017-05-27] MEDS: Sodium Chloride 0.9% 1,000 ML IV SCH (23:54)
[2017-05-28 05:13] LABS: BASOPHILS # (AUTO) 0.06 10*3/UL; BASOPHILS % (AUTO) 1.3 % (0-1); EOSINOPHILS # (AUTO) 0.16 10*3/UL; EOSINOPHILS % (AUTO) 3.6 % (0-8); Hematocrit [HCT] 39.9 % (37.0-47.0); Hemoglobin [HGB] 12.5 g/dL (12.0-16.0); LYMPHOCYTES # (AUTO) 1.94 10*3/uL; MEAN CORPUSCULAR HEMOGLOBIN 26.8 PG (27-31); MEAN CORPUSCULAR HGB CONC 31.3 g/dL (33-37); MEAN CORPUSCULAR VOLUME 85.4 FL (81-99); MEAN PLATELET VOLUME 10.9 FL (7.4-12.2); MONOCYTES # (AUTO) 0.82 10*3/UL (0.3-0.8); MONOCYTES % (AUTO) 18.3 % (5-15); NEUTROPHILS # (AUTO) 1.49 10*3/UL; NEUTROPHILS % (AUTO) 33.4 % (50-80); RED BLOOD COUNT 4.67 10^6/uL (4.20-5.40)
[2017-05-28] MEDS: Levothyroxine Sodium 100 MCG, Levothyroxine Sodium 50 MCG PO SCH ×2 (05:29)
[2017-05-28 05:54] LABS: PLATELET MORPHOLOGY COMMENT NORMAL MORPHOLOGY (NORM); RBC MORPHOLOGY COMMENT NORMAL MORPHOLOGY (NORM); WBC MORPHOLOGY COMMENT NORMAL MORPHOLOGY (NORM)
[2017-05-28] MEDS: Sodium Chloride 0.9% 1,000 ML IV SCH ×4 (07:38→20:12)
[2017-05-28] MEDS: LEVALBUTEROL HCL 0.63 MG/3 ML NEB PRN ×2 (07:57→19:16)
--- NOTE | 2017-05-28 08:35 | PDOC(PROG) ---
Date and Time of Service: 05/28/2017 8:33 AM Interval History: Patient still feels weak, still coughing. She does not spit the phlegm out. Maybe a little bit better but still not great deal of improvement. Objective : Data - Labs CBC and BMP: 05/28/17 04:26 05/27/17 13:53 Objective : Exam - General Additional General Exam Details: Looks tired, coughing at times during the interview - Head Head Exam: Normal Inspection - Eye Eye Exam: Normal Appearance - ENT ENT Exam: Normal Exam - Respiratory Additional Respiratory Exam Details: Occasional harsh breath sounds.. - Cardiovascular Cardiovascular Exam: RRR - GI/Abdominal GI/Abdominal Exam: Normal Bowel Sounds, Non Tender, Non Distended, Soft, No Organomegaly - Rectal Rectal Exam: Deferred - External Exam: Deferred - Extremities Extremities Exam: Normal Inspection - Back Back Exam: Normal Inspection - Neurological Neurological Exam: Alert, Oriented x 3, CN II-XII Intact, No Facial Droop, Speech Intact / Clear, Moves All Extremities Equally - Psychiatric Psychiatric Exam: Normal Affect - Integumentary Integumentary Exam: Normal Color Assessment and Plan - Patient Problems (1) Pneumonia Current Visit: Yes Status: Acute Comment: Because of the possibility of early pneumonia on the x-ray we started her on antibiotics will continue IV antibiotics. We'll cut back on her IV fluid. Will see how she feels tomorrow and then will decide if we can switch to by mouth. Code(s): J18.9 - Pneumonia, unspecified organism (2) Diabetes mellitus type 1 Current Visit: No Status: Chronic Comment: Continue home protocol (3) Hypothyroidism Current Visit: Yes Status: Acute Comment: Same med Code(s): E03.9 - Hypothyroidism, unspecified
[2017-05-28] MEDS ORDERED: LEVOTHYROXINE 125 MCG TABLET PO SCH (09:00)
[2017-05-28] MEDS: FAMOTIDINE 20 MG TABLET PO SCH ×2 (09:30→20:12)
[2017-05-28] MEDS: VENLAFAXINE XR 75 MG CAP PO SCH (09:30)
[2017-05-28] MEDS: LORATADINE 10 MG TABLET PO SCH (09:30)
[2017-05-28] MEDS: FLUTICASONE PROPIONATE INH SCH ×2 (09:31→19:18)
[2017-05-28] MEDS ORDERED: IBUPROFEN 400 MG TABLET PO PRN (12:54)
[2017-05-28] MEDS: cefTRIAXone Inj 2 GM in Sodium Chloride 0.9% 100 ML IV SCH (16:13)
[2017-05-28] MEDS: DOCUSATE 100 MG CAPSULE PO SCH (17:55)
[2017-05-29] MEDS: LEVALBUTEROL HCL 0.63 MG/3 ML NEB PRN ×2 (05:05→12:39)
[2017-05-29] MEDS: Levothyroxine Sodium 100 MCG, Levothyroxine Sodium 50 MCG PO SCH ×2 (05:16)
[2017-05-29] MEDS: VENLAFAXINE XR 75 MG CAP PO SCH (08:13)
[2017-05-29] MEDS: FAMOTIDINE 20 MG TABLET PO SCH (08:13)
[2017-05-29] MEDS: LORATADINE 10 MG TABLET PO SCH (08:13)
--- NOTE | 2017-05-29 08:36 | DCSUMMARY ---
Hospitalization Summary Admit Date: 05/29/2017 Discharge Date: 05/27/17 Hospital Course: Discharge diagnoses 1. Possible early pneumonia right middle lobe 2. Diabetes 3. History of sleep apnea 4. History of palpitations secondary to SVT she is planning to have a an ablation at one point in the future 5. History of esophageal stricture status post dilatation 6. Hypothyroidism Hospital course This is a 56 years old female with medical history significant for history of diabetes type I on insulin, hypothyroidism and history of esophageal stricture that needed dilatation before who came into the hospital with history of cough and not feeling well. Also feeling weak that started the day before admission. Few days before presentation she did have some cold symptoms with runny nose, hoarse voice but the day before admission she started to have cough and felt weak and she didn't eat since the day before admission because of all the symptoms she came into the ER. Evaluation there suggested maybe an early pneumonia on the x-ray so she was given antibiotics and was admitted. Initially she was given Tamiflu before we get the results of the test which came back negative so did not continue with it. She was admitted to the hospital treated as pneumonia with Zithromax and Rocephin. Gradually there was improvement in her symptoms start to feel better on the day of discharge and we thought that she could be discharged home and follow-up with her primary. Blood culture remains negative. Discharge instruction Diet diabetic Medications Current Medication(s) 3 Medication Instructions Recorded Confirmed Type Insulin Pump Cartridge [Cartridge 1 ea SQ continuous #3 box 04/21/13 05/27/17 History Stamped] Olopatadine HCl [Patanol] 1 drp EACH EYE QD #3 bottle 05/28/16 05/27/17 Rx Lidocaine [Lidoderm] 1 patch TRANSDERM DAILY #90 patch 10/01/16 Clinic Promethazine HCl 1 tab PO Q4-6H PRN #60 tab 10/01/16 Clinic Levothyroxine Sodium 1 tab PO DAILY #90 tab 10/14/16 Clinic Estrogens, Conj Vaginal Cream 1 unit VAGINAL PRN #2 #2 Samples 10/22/16 Sample [Premarin Vaginal Cream] Sample Venlafaxine HCl [Venlafaxine Hcl 1 cap PO DAILY #30 cap 10/22/16 Clinic Er] lidocaine 5 % topical patch 1 patch TRANSDERM QDAY #1 patch 12/09/16 05/27/17 Clinic venlafaxine ER 150 mg 150 mg PO QDAY #90 cap 12/09/16 05/27/17 Clinic capsule,extended release 24 hr promethazine 25 mg tablet 25 mg PO Q4-6H PRN #60 tab 12/18/16 05/27/17 Rx docusate sodium 100 mg capsule 400 mg PO QHS cap 01/29/17 05/27/17 History ciclopirox 8 % topical solution 1 applic TOPICAL QDAY #1 bottle 03/14/17 History estradiol 10 mcg vaginal tablet 10 mcg VAGINAL 3XW #36 tab 03/14/17 05/27/17 Rx fexofenadine 180 mg tablet 180 mg PO QDAY tab 03/14/17 05/27/17 History famotidine 20 mg tablet 20 mg PO BID #120 tab 05/05/17 05/27/17 Rx Synthroid 125 mcg tablet 125 mcg PO .qod #30 tab NS 05/16/17 05/27/17 Rx Synthroid 137 mcg tablet 137 mcg PO .qod #30 tab NS 05/16/17 05/27/17 Rx clobetasol 0.05 % topical ointment 1 applic TOPICAL BID PRN #60 g 05/19/1705/27 Rx fluticasone 44 mcg/actuation HFA 2 inh INH BID #1 inh 05/19/17 05/27/17 Rx aerosol inhaler insulin lispro 100 unit/mL 8 unit SQ AC #1 box 05/19/17 05/27/17 Rx subcutaneous pen levalbuterol HFA 45 mcg/actuation 2 puff INH Q6H PRN #3 inh 05/19/17 05/27/17 Rx aerosol inhaler metoclopramide 5 mg/5 mL oral 10 mg PO QID PRN #360 ml 05/19/17 05/27/17 Rx solution insulin lispro 100 unit/mL 80 unit SUBCUT QDAY 90 Days #9 vial 05/20/17 Rx subcutaneous solution acetone (urine) test strips 1 strip MISCELLANEOUS QAM strip 05/22/17 05/27/17 History blood sugar diagnostic strips 1 strip MISCELLANEOUS 6-12x/day 05/22/17 05/27/17 History strip blood-glucose meter 1 ea MISCELLANEOUS 6-12x/day ea 05/22/17 05/27/17 History glucagon (human recombinant) 1 mg 1 mg IM ONCE PRN ea 05/22/17 05/27/17 History injection kit insulin glargine 100 unit/mL (3 4 unit SUBCUT BID PRN #3 ml 05/22/17 05/27/17 Rx mL) subcutaneous pen Azithromycin [Zithromax] 250 mg PO DAILY #3 tab 05/29/17 Rx Cefdinir Cap [Omnicef Cap] 300 mg PO BID #6 cap 05/29/17 Rx Follow-up with her PCP in 1-2 weeks Condition at discharge was stable for discharge Exam - Vitals Vital Signs: Vital Signs Temperature 98.4 F Temperature Source Temporal Artery Scan Pulse Rate [Apical] 90 Pulse Rate [Pulse Oximeter] 85 Pulse Rate 75 Respiratory Rate 22 Blood Pressure [Right Arm] 151/75 Blood Pressure 144/72 Pulse Ox 97 Oxygen Flow Rate 1 Oxygen Delivery Method Nasal Cannula Height 5 ft 4 in Weight 191 lb 3.2 oz - General General Appearance: No Acute Distress, Cooperative, Obese - Head Head Exam: Normal Inspection, Normocephalic - Eye Eye Exam: POSITIVE: Normal Appearance - ENT ENT Exam: POSITIVE: Normal Exam - Neck Neck Exam: Normal Inspection - Respiratory Additional Respiratory Exam Details: Occasional harsh breath sounds - Cardiovascular Cardiovascular Exam: POSITIVE: RRR - GI/Abdominal GI/Abdominal Exam: POSITIVE: Normal Bowel Sounds, Non Tender, Non Distended, Soft, No Organomegaly - Rectal Rectal Exam: POSITIVE: Deferred - External Exam: POSITIVE: Deferred - Extremities Extremities Exam: POSITIVE: Normal Inspection - Back Back Exam: POSITIVE: Normal Inspection - Neurological Neurological Exam: POSITIVE: Alert, Oriented x 3, CN II-XII Intact, No Facial Droop, Speech Intact / Clear - Psychiatric Psychiatric Exam: POSITIVE: Normal Affect - Integumentary Integumentary Exam: POSITIVE: Normal Color Patient Problems - Patient Problem List (1) Pneumonia Status: Acute Code(s): J18.9 - Pneumonia, unspecified organism Category: Medical (2) Diabetes mellitus type 1 Status: Chronic Category: Medical (3) Hypothyroidism Status: Acute Code(s): E03.9 - Hypothyroidism, unspecified Category: Medical
[2017-05-29] MEDS ORDERED: LEVOTHYROXINE 137 MCG TABLET PO SCH (09:00)
[2017-05-29] MEDS: FLUTICASONE PROPIONATE INH SCH (10:23)
[2017-05-29] MEDS: cefTRIAXone Inj 2 GM in Sodium Chloride 0.9% 100 ML IV SCH (14:15)
[2017-05-29 14:17] VITALS: BP 172/79; RESP 20; TEMP 97.6
[2017-05-29 15:50] VITALS: O2SAT 95
== END 2017-05-29 16:58 | disposition home or self-care (01) ==
LOC: MED/SURG 11:38 → ER 11:38
PROVIDERS: ADMIT Internal Medicine; ATTEND Internal Medicine

== ENCOUNTER 2018-04-20 08:19 | Inpatient (IN) ==
[~2018-04-20 08:19] MED LIST changes: +KETAMINE HCL 100 MG/2 ML SYRINGE IV ONE; -LIDOCAINE 2% VISCOUS(20 MG/1 ML) - 15 ML UD CUP PO ONE; -LIDOCAINE HCL/PF 2% (20 MG/ML) - 5 ML SYRINGE ONE; +LIDOCAINE W/ SODIUM BICARB 0.5 ML SYR SUBD PRN; +Lactated Ringers 1,000 ML PRIMARY IV SCH; -MIDAZOLAM 5 MG/1 ML ONE; +MIDAZOLAM HCL 2 MG/2 ML VIAL ONE; +PROPOFOL 10 MG/1 ML (200 MG/20 ML) VIAL IV ONE; +REMIFENTANIL 1 MG/1 ML IV ONE; +Sodium Chloride 0.9% 1,000 ML PRIMARY IV SCH
[2018-04-20] MEDS ORDERED: Sodium Chloride 0.9% 1,000 ML PRIMARY IV ONE ×2 (08:40→11:07)
[2018-04-20] MEDS ORDERED: LIDOCAINE W/ SODIUM BICARB 0.5 ML SYR ONE (08:40)
[2018-04-20] MEDS ORDERED: SCOPOLAMINE HYDROBROMIDE 1.5 MG - 1 EACH PATCH TRANSDERM ONE (10:19)
[2018-04-20] MEDS ORDERED: PROPOFOL 10 MG/1 ML (200 MG/20 ML) VIAL IV ONE ×2 (10:38→10:53)
[2018-04-20] MEDS ORDERED: REMIFENTANIL 1 MG/1 ML IV ONE (10:54)
--- NOTE | 2018-04-20 11:15 | ENT.OPNOTE ---
Operative Note -: See Dictated Operative Report
[2018-04-20] MEDS: HYDROmorphone 2 MG/1 ML IVP PRN ×7 (11:36→23:21)
[2018-04-20] MEDS ORDERED: HYDROmorphone 2 MG/1 ML ONE (11:39)
--- NOTE | 2018-04-20 11:59 | CRNA.PROGR ---
Anesthesia Time - Procedure/Recovery Time Start Date: 04/20/18 End Date: 04/20/18 Anesthesia : Time In: 10:20 Anesthesia : Time Out: 11:27 Anesthesia : Total Time: 67 - Total Anesthesia Time Total Anesthesia Time (minutes): 67 - Other Weight: 88.904 kg Height: 5 ft 3 in Body Mass Index (BMI): 34.7 Physical Status: P2 (IDDM) Anesthesia Type: General Anesthesia : ET
--- NOTE | 2018-04-20 12:00 | CRNA.PROGR ---
Post Anesthesia Phase II - Post Anesthesia Phase II Patient Stable and Discharged To: Med/Surg Care Assumed By Surgeon: Jovany Otero MD Temperature: 97.0 F Pulse Rate: 85 Respiratory Rate: 12 Blood Pressure: 203/105 Pulse Ox: 99 Total Aurora Score at Discharge: 9 Post Anesthesia Discharge Criteria Met: Yes
[2018-04-20] MEDS ORDERED: ceFAZolin Inj 1 GM in Sodium Chloride 0.9% 100 ML IV ONE (12:02)
[2018-04-20] MEDS: HYDROcodone/APAP 7.5/325/15ml 15 ML CUP PO PRN ×2 (12:08→15:45)
[2018-04-20] MEDS ORDERED: HYDROcodone/APAP 7.5/325/15ml 15 ML CUP PO ONE (12:15)
[2018-04-20] MEDS: ENALAPRILAT DIHYDRATE 1.25 MG/1 ML VIAL IVP ONE ×2 (12:24→12:48)
[2018-04-20] MEDS ORDERED: ENALAPRILAT DIHYDRATE 1.25 MG/1 ML VIAL ONE (12:29)
[2018-04-20] MEDS ORDERED: diphenhydrAMINE 50 MG/1 ML VIAL IVP ONE (12:44)
[2018-04-20] MEDS ORDERED: diphenhydrAMINE 50 MG/1 ML VIAL ONE (12:50)
[2018-04-20] MEDS: 1/2NS + 20mEq KCL 1,000 ML PRIMARY IV SCH (14:09)
[2018-04-20] MEDS: ONDANSETRON 4 MG/2 ML VIAL IVP PRN (14:25)
[2018-04-20] MEDS ORDERED: ZOLPIDEM 10 MG TABLET PO PRN (14:51)
[2018-04-20] MEDS ORDERED: CLOBETASOL PROPIONATE TOPICAL PRN (14:51)
[2018-04-20] MEDS ORDERED: Non-Formulary Drug (Levalbuterol Tartrate [Xopenex Hfa] 2 PUFF) INH SCH (15:00)
[2018-04-20] MEDS ORDERED: INSULIN PUMP CARTRIDGE SQ SCH (15:00)
[2018-04-20] MEDS ORDERED: OLOPATADINE HCL OP SCH (15:00)
--- NOTE | 2018-04-20 15:13 | PDOC ---
HPI - History of Present Illness Date of Service: 04/20/18 Time of Service: 15:08 Chief Complaint: Sore throat History of Present Illness: This very pleasant 57-year-old female with underlying diabetes mellitus type I, hypothyroidism, recent ablation done in [place], who comes in in the setting of having tonsils removed due to obstructive sleep apnea. The procedure was done by Dr. Otero. See his notes regarding the procedure. I was asked to see the patient regarding her diabetes and postoperative hypertension. She has been in some pain, but recently got Dilaudid and states that her pain is improving to some degree. We did do a lot of "yes and no" questions due to her throat hurting from her tonsils being removed. Patient states that she does not have any chest pain, shortness breath, nausea or vomiting postoperatively. She n ormally manages her insulin with the pump. She's having some difficulty managing her pump due to sedation from pain medications. Past Medical History Medical History: 1. Type I diabetes on insulin pump. 2. Hypothyroidism. 3. History of esophageal stricture status post dilatation. 4. History of palpitation secondary to SVT, status post ablation. 5. Sleep apnea on CPAP, status post tonsillectomy today. Surgical History: 1. Ablation. 2. Tonsillectomy today. 3. Knee surgery. 4. Hand surgery. 5. History of EGD and colonoscopy. 6. History of sinus surgery Family History: Reviewed an Not Pertinent Pertinent Family History: Patient was adopted and does not know her family history Past Social History: Does not smoke, does not drink. No drugs. to Dr. Batista. Has 1 child that is a NICU nurse in [place]. Tobacco Use: Never Smoker In the Past 12 Months, Have Used or Abuse Any of the Following Substance: None Alcohol Use: None Medication / Allergies Home Medications: Home Medications Medication Instructions Recorded Confirmed Type Insulin Pump Cartridge [Cartridge 1 ea SQ continuous #3 box 04/21/13 04/20/18 History Stamped] Lidocaine [Lidoderm] 1 patch TRANSDERM DAILY #90 patch 10/01/16 Clinic Promethazine HCl 1 tab PO Q4-6H PRN #60 tab 10/01/16 Clinic Levothyroxine Sodium 1 tab PO DAILY #90 tab 10/14/16 Clinic Venlafaxine HCl [Venlafaxine Hcl 1 cap PO DAILY #30 cap 10/22/16 Clinic Er] promethazine 25 mg tablet 25 mg PO Q4-6H PRN #60 tab 12/18/16 04/20/18 Rx ciclopirox 8 % topical solution 1 applic TOPICAL QDAY #1 bottle 03/14/17 04/20/18 History fexofenadine 180 mg tablet 180 mg PO QDAY tab 03/14/17 04/20/18 History insulin lispro (U- 100) 100 8 unit SQ AC #1 box 05/19/17 04/20/18 Rx unit/mL subcutaneous pen blood-glucose meter 1 ea MISCELLANEOUS 6-12x/day ea 05/22/17 04/20/18 History Synthroid 125 mcg tablet 125 mcg PO QDAY #90 tab NS 06/30/17 04/20/18 Rx lidocaine 5 % topical patch 1 patch TOPICAL QHS #90 ea 06/30/17 04/20/18 Rx glucagon (human recombinant) 1 mg 1 mg IM ONCE PRN #1 ea 07/01/17 04/20/18 Rx injection kit olopatadine 0.1 % eye drops 1 drp OP QDAY #3 bottle 07/01/17 04/20/18 Rx acetone (urine) test strips 1 strip MISCELLANEOUS QAM #50 strip 08/25/17 04/20/18 Rx docusate sodium 100 mg capsule 400 mg PO QHS #90 cap 09/10/17 04/20/18 Rx zolpidem 10 mg tablet 10 mg PO QHS PRN #90 tab 09/10/17 04/20/18 Rx clobetasol 0.05 % topical ointment 1 applic TOPICAL BID PRN #60 g 10/24/17 04/20/18 Rx metoclopramide 5 mg/5 mL oral 10 mg PO QID PRN #360 ml 10/24/17 04/20/18 Rx solution famotidine 20 mg tablet 20 mg PO BID #120 tab 11/04/17 04/20/18 Rx insulin glargine (U-100) 100 4 unit SUBCUT BID PRN #3 ml 11/18/17 04/20/18 Rx unit/mL (3 mL) subcutaneous pen venlafaxine ER 37.5 mg 37.5 mg PO QDAY #90 cap 11/28/17 04/20/18 Rx capsule,extended release 24 hr estradiol 10 mcg vaginal tablet 10 mcg VAGINAL 3XW #36 tab 12/29/17 04/20/18 Rx blood sugar diagnostic strips 1 strip MISCELLANEOUS 10XD #900 02/25/18 04/20/18 Rx strip levalbuterol HFA 45 mcg/actuation 2 puff INH Q6H PRN #3 inh 02/26/18 04/20/18 Rx aerosol inhaler fluticasone 44 mcg/actuation HFA 2 inh INH BID #1 inh 03/30/18 04/20/18 Rx aerosol inhaler montelukast 10 mg tablet 10 mg PO QDAY #60 tab 04/08/18 04/20/18 Rx C-Pap 04/17/18 History Amoxicillin Susp 500 mg PO Q8H 10 Days #150 ml 04/20/18 Rx HYDROcodone/APAP 7.5/325/15ml 10 - 15 ml PO Q4H PRN #240 cp 04/20/18 Rx [Lortab 7.5mg/325mg per 15ml Soln] Allergies/Adverse Reactions: Allergies Allergy/AdvReac Type Severity Reaction Status Date / Time bacitracin zinc Allergy Intermediate burn,bliste Verified 04/20/18 09:41 [From Neosporin r ([id number])] neomycin sulfate Allergy Intermediate burn,bliste Verified 04/20/18 09:41 [From Neosporin r ([id number])] polymyxin B Allergy Intermediate burn,bliste Verified 04/20/18 09:41 [From Neosporin r ([id number])] bacitracin Allergy blister,bur Verified 04/20/18 09:41 n povidone-iodine Allergy .BURNING Verified 04/20/18 09:41 [From Betadine] soap [From Betadine] Allergy .BURNING Verified 04/20/18 09:41 Sulfa (Sulfonamide Allergy HIVES Verified 04/20/18 09:41 Antibiotics) Review of Systems - Constitutional Constitutional: REPORTS: Other (Some acute postoperative pain, controlled with Dilaudid) - Respiratory Respiratory: REPORTS: Negative System Review - Cardiovascular Cardiovascular: REPORTS: Negative System Review - Gastrointestinal Gastrointestinal / Abdominal: REPORTS: Negative System Review - Genitourinary Genitourinary: REPORTS: Negative System Review Exam - Vitals Vital Signs: Vital Signs Temperature 98.1 F Temperature Source Temporal Artery Scan Pulse Rate [Pulse Oximeter] 61 Pulse Rate 64 Respiratory Rate 18 Blood Pressure [Right Arm] 160/77 Blood Pressure 155/77 Pulse Ox 95 Oxygen Flow Rate 2 Oxygen Delivery Method Nasal Cannula Height 5 ft 3 in Weight 196 lb - General General Appearance: No Acute Distress, Cooperative - Head Head Exam: Normal Inspection, Normocephalic, Atraumatic - Eye Eye Exam: POSITIVE: No Scleral Icterus - ENT ENT Exam: POSITIVE: Mucous Membranes Moist - Neck Neck Exam: JVP is not Raised Additional Neck Exam Details: minimal post operative swelling. Ice pack in place - Respiratory Respiratory Exam: POSITIVE: Clear to Auscultation - Bilaterally, Breathing Non Labored - Cardiovascular Cardiovascular Exam: POSITIVE: RRR, No Murmur, No Clicks, No Gallops, No Rubs, No JVD - GI/Abdominal GI/Abdominal Exam: POSITIVE: Normal Bowel Sounds, Non Tender, Non Distended, Soft - Rectal Rectal Exam: POSITIVE: Deferred - External Exam: POSITIVE: Deferred Exam: POSITIVE: Deferred - Extremities Extremities Exam: POSITIVE: No Clubbing Present, No Edema Present, No Cyanosis Present - Neurological Neurological Exam: POSITIVE: Alert, Oriented x 3, No Facial Droop, Speech Intact / Clear, Moves All Extremities Equally - Psychiatric Psychiatric Exam: POSITIVE: Normal Affect, Normal Mood Assessment and Plan - Patient Problems (1) Diabetes mellitus type 1 Current Visit: No Status: Chronic Qualifiers: Diabetes mellitus complication status: with neurologic complications Diabetes mellitus complication detail: with autonomic neuropathy Qualified Code(s): E10.43 - Type 1 diabetes mellitus with diabetic autonomic (poly)neuropathy (2) Gastroparesis due to DM Current Visit: Yes Status: Chronic Onset Date: 08/25/14 Code(s): E11.43 - Type 2 diabetes mellitus with diabetic autonomic (poly)neuropathy; K31.84 - Gastroparesis (3) Hypothyroidism Current Visit: Yes Status: Acute Code(s): E03.9 - Hypothyroidism, unspecified Qualifiers: 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 We will consult dietitian to assist with pump until the patient is little more alert with pain control for her tonsillectomy. I would like to keep the patient on her insulin pump through the hospital stay. She will know better how to manage that and then us trying to do subcutaneous insulin management and stop her pump. I think the conversion would be more difficult. We will check blood sugars before meals and at bedtime Try to continue home medications otherwise. We'll hold off on nasal steroid sprays given her surgery. Pain medications as per ENT and postsurgical care.
[2018-04-20] MEDS ORDERED: Metoclopramide Tab 10 MG TAB PO PRN (15:15)
[2018-04-20] MEDS: FAMOTIDINE 20 MG TABLET PO SCH (21:09)
[2018-04-20] MEDS: DOCUSATE 100 MG CAPSULE PO SCH (21:09)
[2018-04-20] MEDS: LIDOCAINE 700 MG PATCH TOPICAL SCH (21:12)
[2018-04-20] MEDS: Metoclopramide Inj 10 MG/2 ML VIAL IVP PRN (21:50)
[2018-04-21] MEDS: HYDROmorphone 2 MG/1 ML IVP PRN ×3 (02:58→10:54)
[2018-04-21] MEDS: 1/2NS + 20mEq KCL 1,000 ML PRIMARY IV SCH (02:58)
[2018-04-21] MEDS: LEVOTHYROXINE 125 MCG TABLET PO SCH (05:46)
[2018-04-21] MEDS: Metoclopramide Inj 10 MG/2 ML VIAL IVP PRN (09:55)
[2018-04-21] MEDS: VENLAFAXINE XR 37.5 MG CAP PO SCH (10:03)
[2018-04-21] MEDS: Montelukast Tab 10 MG TAB PO SCH (10:04)
[2018-04-21] MEDS: FAMOTIDINE 20 MG TABLET PO SCH ×2 (10:04→21:11)
[2018-04-21] MEDS ORDERED: PROMETHAZINE 25 MG SUPPOSITORY RECTAL ONE (11:24)
[2018-04-21] MEDS ORDERED: PROMETHAZINE 25 MG SUPPOSITORY RECTAL PRN (11:24)
[2018-04-21] MEDS: Patch Removal PATCH TRANSDERM SCH (11:43)
[2018-04-21] MEDS ORDERED: Non-Formulary Drug (Tetracaine 0.5% Lollipop 1 LOZENGE) PO PRN (12:31)
[2018-04-21] MEDS: HYDROcodone/APAP 7.5/325/15ml 15 ML CUP PO PRN ×3 (14:01→21:56)
--- NOTE | 2018-04-21 15:03 | PDOC(PROG) ---
Date of Service: 04/21/18 Time of Service: 14:57 Interval History: patient seen and evaluated earlier. no chest pain, no SOB. no vomiting. has nausea. pain is better controlled in tonsils. Objective : Data - Labs Additional Lab Results: Selected Entries 04/20/18 11:20 04/20/18 12:00 04/20/18 12:45 Finger Stick Blood Glucose 180 H 172 H 164 H 04/20/18 15:48 04/20/18 20:00 04/21/18 07:21 Finger Stick Blood Glucose 196 H 190 H 192 H 04/21/18 11:09 Finger Stick Blood Glucose 159 H Objective : Exam - General General Appearance: No Acute Distress, Cooperative Additional General Exam Details: Vital Signs - Last Taken Temperature 98.9 F 04/21/18 11:12 Pulse Rate 93 04/21/18 11:12 Respiratory Rate 17 04/21/18 11:12 Blood Pressure 139/61 04/21/18 11:12 Pulse Ox 93 04/21/18 11:12 - Eye Eye Exam: No Scleral Icterus - Neck Neck Exam: Normal Inspection Additional Neck Exam Details: swelling is minimal. - Respiratory Respiratory Exam: Clear to Auscultation - Bilaterally, Breathing Non Labored - Cardiovascular Cardiovascular Exam: RRR, No Murmur, No Clicks, No Gallops, No Rubs, No JVD - GI/Abdominal GI/Abdominal Exam: Normal Bowel Sounds, Non Tender, Non Distended, Soft - Extremities Extremities Exam: No Clubbing Present, No Edema Present, No Cyanosis Present - Neurological Neurological Exam: Alert, Oriented x 3, No Facial Droop, Speech Intact / Clear, Moves All Extremities Equally Assessment and Plan - Patient Problems (1) Diabetes mellitus type 1 Current Visit: Yes Status: Acute Qualifiers: Diabetes mellitus complication status: with neurologic complications Diabetes mellitus complication detail: with autonomic neuropathy Qualified Code(s): E10.43 - Type 1 diabetes mellitus with diabetic autonomic (poly)neuropathy (2) Gastroparesis due to DM Current Visit: Yes Status: Chronic Onset Date: 08/25/14 Code(s): E11.43 - Type 2 diabetes mellitus with diabetic autonomic (poly)neuropathy; K31.84 - Gastroparesis (3) Hypothyroidism Current Visit: Yes Status: Acute Code(s): E03.9 - Hypothyroidism, unspecified Qualifiers: 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 still mildly hypoxic, will continue oxygen and monitor one more night continue blood sugar checks, look good at this time, and let patient continue to manage her insulin pump. probably home tomorrow if good pain control, hopefully off oxygen, and blood sugars looking good.
[2018-04-21] MEDS: AMOXICILLIN 250 MG/5 ML PO SCH ×2 (15:55→20:43)
[2018-04-21] MEDS ORDERED: diphenhydrAMINE 50 MG/1 ML VIAL IVP PRN (17:34)
[2018-04-21] MEDS: LIDOCAINE 700 MG PATCH TOPICAL SCH (21:11)
[2018-04-21] MEDS: DOCUSATE 100 MG CAPSULE PO SCH (21:11)
[2018-04-22] MEDS: HYDROcodone/APAP 7.5/325/15ml 15 ML CUP PO PRN ×5 (02:07→18:56)
[2018-04-22] MEDS: LEVOTHYROXINE 125 MCG TABLET PO SCH (04:29)
[2018-04-22] MEDS: AMOXICILLIN 250 MG/5 ML PO SCH (10:01)
[2018-04-22] MEDS: Montelukast Tab 10 MG TAB PO SCH (10:02)
[2018-04-22] MEDS: FAMOTIDINE 20 MG TABLET PO SCH ×2 (10:02→20:50)
[2018-04-22] MEDS: VENLAFAXINE XR 37.5 MG CAP PO SCH (10:03)
[2018-04-22] MEDS: Patch Removal PATCH TRANSDERM SCH (10:54)
--- NOTE | 2018-04-22 11:56 | DI ---
XR CXR 1VW 04/22/2018 10:53 AM HISTORY: [facility] [place] [facility] ^hypoxia Comparison: CT chest 02/01/2014. Findings: A single portable frontal view of the chest is submitted. Images demonstrate patchy right perihilar and left lung base opacities. The left costophrenic angle i s blunted, most likely representing a small pleural effusion. There is no large pneumothorax. The car diomediastinal silhouette is normal size with atheromatous calcifications in the arch of the tortuous thoracic aorta. The osseous structures are notable for degenerative changes of the acromioclavicular joint and spine. Impression: 1. Patchy right perihilar and left lung base opacities may represent early airspace disease in the co rrect clinical setting. Repeat imaging 6 weeks following completion of therapy is recommended in orde r to ensure resolution. 2. Probable small left pleural effusion.
[2018-04-22] MEDS: cefTRIAXone Inj 2 GM in Sodium Chloride 0.9% 100 ML IV SCH (15:20)
[2018-04-22] MEDS ORDERED: Sodium Chloride 0.9% 100 ML IV ONE (15:30)
--- NOTE | 2018-04-22 15:34 | PDOC(PROG) ---
Date of Service: 04/22/18 Time of Service: 15:32 Interval History: Patient seen and evaluated a couple times today. With low-grade temperature I felt it would be best to get a chest x-ray, and chest x-ray shows a small left- sided pneumonia with very small pleural effusion. Try to arrange for thoracentesis but too small to tap. No chest pain. Does not feel short of breath. Has been persistently hypoxic which I think is probably related to pneumonia as much as anything. She does have known obstructive sleep apnea but has not been on CPAP here in the hospital. Objective : Exam - General General Appearance: No Acute Distress, Cooperative Additional General Exam Details: Vital Signs - Last Taken Temperature 97.6 F 04/22/18 11:31 Pulse Rate 79 04/22/18 11:31 Respiratory Rate 12 04/22/18 11:31 Blood Pressure 133/70 04/22/18 11:31 Pulse Ox 95 04/22/18 11:31 On 2 L per nasal cannula - Head Head Exam: Normal Inspection, Normocephalic, Atraumatic - Eye Eye Exam: No Scleral Icterus - ENT ENT Exam: Mucous Membranes Moist - Neck Neck Exam: Normal Inspection, JVP is not Raised Additional Neck Exam Details: Ice pack in place. Voice does sound better today - Respiratory Respiratory Exam: Clear to Auscultation - Bilaterally, Breathing Non Labored - Cardiovascular Cardiovascular Exam: RRR, No Murmur, No Clicks, No Gallops, No Rubs, No JVD - GI/Abdominal GI/Abdominal Exam: Normal Bowel Sounds, Non Tender, Non Distended, Soft - Extremities Extremities Exam: No Clubbing Present, No Edema Present, No Cyanosis Present - Neurological Neurological Exam: Alert, Oriented x 3, No Facial Droop, Speech Intact / Clear, Moves All Extremities Equally - Psychiatric Psychiatric Exam: Normal Affect, Normal Mood Assessment and Plan - Patient Problems (1) Aspiration pneumonia Current Visit: Yes Status: Acute Code(s): J69.0 - Pneumonitis due to inhalation of food and vomit Qualifiers: Aspiration pneumonia type: unspecified Laterality: left Lung location: lower lobe of lung Qualified Code(s): J69.0 - Pneumonitis due to inhalation of food and vomit (2) Diabetes mellitus type 1 Current Visit: Yes Status: Acute Qualifiers: Diabetes mellitus complication status: with neurologic complications Diabetes mellitus complication detail: with autonomic neuropathy Qualified Code(s): E10.43 - Type 1 diabetes mellitus with diabetic autonomic (poly)denita ropathy (3) Gastroparesis due to DM Current Visit: Yes Status: Chronic Onset Date: 08/25/14 Code(s): E11.43 - Type 2 diabetes mellitus with diabetic autonomic (poly)neuropathy; K31.84 - Gastroparesis (4) Hypothyroidism Current Visit: Yes Status: Acute Code(s): E03.9 - Hypothyroidism, unspecified Qualifiers: 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 I'll start Rocephin and clindamycin. Hold off on the amoxicillin with these other antibiotics. Continue routine postoperative care for tonsillectomy. Patient does have a better voice today and her swelling seems to have gone down and pain control seems to be better. We tried to arrange for radiology thoracentesis but the amount of fluid was just too small to do the procedure safely. Given that, I think we should reimage the patient in about a week and if the effusion is larger, proceed with thoracentesis then, otherwise it may be recurrent or repeat images to make sure that this resolves completely. Continue oxygen. If the patient looks good in the next 24-48 hours, may consider oxygen at home with about a 5-7 day course of antibiotics as well as anticipating at this time. For now, I think the patient should be inpatient, particularly related to her temperature at 99 (low-grade temperature), and persistent hypoxia. I will change her status to inpatient at this time. Check basic metabolic panel and CBC with differential today and tomorrow Discussed with patient and and they agree.
[2018-04-22] MEDS ORDERED: ALBUTEROL SULFATE 2.5 MG/3 ML NEB PRN (15:39)
[2018-04-22 15:57] LABS: BASOPHILS # (AUTO) 0.03 10*3/UL; BASOPHILS % (AUTO) 0.5 % (0-1); EOSINOPHILS # (AUTO) 0.19 10*3/UL; EOSINOPHILS % (AUTO) 2.9 % (0-8); Hematocrit [HCT] 39.7 % (37.0-47.0); Hemoglobin [HGB] 12.4 g/dL (12.0-16.0); LYMPHOCYTES # (AUTO) 1.62 10*3/uL; MEAN CORPUSCULAR HEMOGLOBIN 26.9 PG (27-31); MEAN CORPUSCULAR HGB CONC 31.2 g/dL (33-37); MEAN CORPUSCULAR VOLUME 86.1 FL (81-99); MEAN PLATELET VOLUME 10.8 FL (7.4-12.2); MONOCYTES # (AUTO) 0.61 10*3/UL (0.3-0.8); MONOCYTES % (AUTO) 9.4 % (5-15); NEUTROPHILS # (AUTO) 4.01 10*3/UL; RED BLOOD COUNT 4.61 10^6/uL (4.20-5.40)
[2018-04-22 16:00] LABS: PLATELET MORPHOLOGY COMMENT NORMAL MORPHOLOGY (NORM); RBC MORPHOLOGY COMMENT NORMAL MORPHOLOGY (NORM); WBC MORPHOLOGY COMMENT NORMAL MORPHOLOGY (NORM)
[2018-04-22 16:09] LABS: BLOOD UREA NITROGEN 8 mg/dL (7-22)
[2018-04-22] MEDS: Clindamycin 900mg (Premix) 900 MG/50 ML BAG IV SCH ×2 (16:09→23:29)
--- NOTE | 2018-04-22 17:04 | DI ---
US Thorancentesis 04/22/2018 1:53 PM HISTORY: [facility] [place] ^parapneumonic effusion ^please wait to do when Dr. Batista can go down ^with patient Comparison: Chest x-ray from earlier the same day. Findings/ Impression: Targeted damian scale and color doppler ultrasound of the right and left lung bases demons trates a tiny left pleural effusion that is not amenable to ultrasound-guided thoracentesis. There is no significant pleural effusion on the right.
[2018-04-22] MEDS: DOCUSATE 100 MG CAPSULE PO SCH (20:50)
[2018-04-22] MEDS: LIDOCAINE 700 MG PATCH TOPICAL SCH (20:50)
[2018-04-23] MEDS: HYDROcodone/APAP 7.5/325/15ml 15 ML CUP PO PRN (00:05)
[2018-04-23] MEDS: LEVOTHYROXINE 125 MCG TABLET PO SCH (04:29)
[2018-04-23 05:56] LABS: BASOPHILS # (AUTO) 0.05 10*3/UL; BASOPHILS % (AUTO) 0.9 % (0-1); EOSINOPHILS # (AUTO) 0.27 10*3/UL; Hematocrit [HCT] 37.7 % (37.0-47.0); Hemoglobin [HGB] 11.9 g/dL (12.0-16.0); LYMPHOCYTES # (AUTO) 1.71 10*3/uL; MEAN CORPUSCULAR HGB CONC 31.6 g/dL (33-37); MEAN CORPUSCULAR VOLUME 85.7 FL (81-99); MEAN PLATELET VOLUME 11.1 FL (7.4-12.2); MONOCYTES # (AUTO) 0.52 10*3/UL (0.3-0.8); MONOCYTES % (AUTO) 9.7 % (5-15); NEUTROPHILS % (AUTO) 52.4 % (50-80)
[2018-04-23 06:01] LABS: PLATELET MORPHOLOGY COMMENT NORMAL MORPHOLOGY (NORM); RBC MORPHOLOGY COMMENT NORMAL MORPHOLOGY (NORM); WBC MORPHOLOGY COMMENT NORMAL MORPHOLOGY (NORM)
[2018-04-23 06:19] LABS: BLOOD UREA NITROGEN 10 mg/dL (7-22)
[2018-04-23] MEDS: Clindamycin 900mg (Premix) 900 MG/50 ML BAG IV SCH ×3 (06:54→22:11)
[2018-04-23] MEDS: Patch Removal PATCH TRANSDERM SCH (08:31)
[2018-04-23] MEDS: FAMOTIDINE 20 MG TABLET PO SCH ×2 (09:41→20:27)
[2018-04-23] MEDS: VENLAFAXINE XR 37.5 MG CAP PO SCH (09:42)
[2018-04-23] MEDS: Montelukast Tab 10 MG TAB PO SCH (09:43)
[2018-04-23] MEDS: cefTRIAXone Inj 2 GM in Sodium Chloride 0.9% 100 ML IV SCH (14:41)
--- NOTE | 2018-04-23 14:50 | PDOC(PROG) ---
Date of Service: 04/23/18 Time of Service: 14:20 Interval History: No chest pain. Feels like she is breathing better but is having a little mild cough. Stated that she had pneumonia back in May and she is artery had Pneumovax and she had the flu vaccine this year. Does not smoke. States her tonsils feel much better. Pain is significantly reduced. She has a normal voice today. Swallowing easier. Objective : Data - Labs CBC and BMP: 04/23/18 05:15 04/23/18 05:15 Objective : Exam - General General Appearance: No Acute Distress, Cooperative Additional General Exam Details: Vital Signs - Last Taken Temperature 97.6 F 04/23/18 11:04 Pulse Rate 86 04/23/18 11:04 Respiratory Rate 12 04/23/18 11:04 Blood Pressure 154/73 04/23/18 11:04 Pulse Ox 94 04/23/18 11:04 - Eye Eye Exam: No Scleral Icterus - ENT ENT Exam: Mucous Membranes Moist - Neck Neck Exam: JVP is not Raised - Respiratory Respiratory Exam: Clear to Auscultation - Bilaterally, Breathing Non Labored - Cardiovascular Cardiovascular Exam: RRR, No Murmur, No Clicks, No Gallops, No Rubs, No JVD - GI/Abdominal GI/Abdominal Exam: Normal Bowel Sounds, Non Tender, Non Distended, Soft - Extremities Extremities Exam: No Clubbing Present, No Edema Present, No Cyanosis Present - Neurological Neurological Exam: Alert, Oriented x 3, Normal Gait, No Facial Droop, Speech Intact / Clear, Moves All Extremities Equally - Psychiatric Psychiatric Exam: Normal Affect, Normal Mood Assessment and Plan - Patient Problems (1) Aspiration pneumonia Current Visit: Yes Status: Acute Code(s): J69.0 - Pneumonitis due to inhalation of food and vomit Qualifiers: Aspiration pneumonia type: unspecified Laterality: left Lung location: lower lobe of lung Qualified Code(s): J69.0 - Pneumonitis due to inhalation of food and vomit (2) Diabetes mellitus type 1 Current Visit: Yes Status: Acute Qualifiers: Diabetes mellitus complication status: with neurologic complications Diabetes mellitus complication detail: with autonomic neuropathy Qualified Code(s): E10.43 - Type 1 diabetes mellitus with diabetic autonomic (poly)neuropathy (3) Gastroparesis due to DM Current Visit: Yes Status: Chronic Onset Date: 08/25/14 Code(s): E11.43 - Type 2 diabetes mellitus with diabetic autonomic (poly)neuropathy; K31.84 - Gastroparesis (4) Hypothyroidism Current Visit: Yes Status: Acute Code(s): E03.9 - Hypothyroidism, unspecified Qualifiers: 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 8 - Other specified hypothyroidism; E06.3 - Autoimmune thyroiditis (5) Obstructive sleep apnea Current Visit: Yes Status: Chronic Onset Date: 10/14/16 Code(s): G47.33 - Obstructive sleep apnea (adult) (pediatric) (6) Status post tonsillectomy Current Visit: Yes Status: Acute Code(s): Z90.89 - Acquired absence of other organs - Assessment / Plan Additional Assessment/Plan Details: Today is day 2 of IV antibiotics. I think tomorrow, the patient is still maintaining these types of symptoms, even if she still requiring minimal oxygen, she will probably be ready for discharge and I think we can go with 5 days of antibiotic therapy. Pleural fluid was too little to actually drain in radiology, but I think we need to keep an eye on this all asked for a chest x-ray in a week and we'll try to get patient follow-up with Dr. Zamarripa to see her in the clinic to review pleural effusion. I also think the patient should proceed with chest x-ray 6 weeks to make sure there is complete resolution of this. Probably switch to Augmentin for 3 starting tomorrow. Plan discussed with patient and she agreed.
[2018-04-23] MEDS: LIDOCAINE 700 MG PATCH TOPICAL SCH (20:26)
[2018-04-23] MEDS: DOCUSATE 100 MG CAPSULE PO SCH (20:26)
[2018-04-23] MEDS: ONDANSETRON 4 MG/2 ML VIAL IVP PRN (23:02)
[2018-04-24] MEDS: LEVOTHYROXINE 125 MCG TABLET PO SCH (04:50)
[2018-04-24] MEDS: Clindamycin 900mg (Premix) 900 MG/50 ML BAG IV SCH ×2 (06:49→15:38)
[2018-04-24] MEDS: FAMOTIDINE 20 MG TABLET PO SCH (09:36)
[2018-04-24] MEDS: Patch Removal PATCH TRANSDERM SCH (09:36)
[2018-04-24] MEDS: VENLAFAXINE XR 37.5 MG CAP PO SCH (09:36)
[2018-04-24] MEDS: Montelukast Tab 10 MG TAB PO SCH (09:36)
[2018-04-24 12:16] VITALS: BP 157/71; RESP 20; TEMP 97.9; O2SAT 92
--- NOTE | 2018-04-24 14:19 | DCSUMMARY ---
Hospitalization Summary Admit Date: 04/20/2017 Discharge Date: 04/24/18 Primary Diagnosis:: aspiration pneumonia Secondary Diagnosis:: Status post tonsillectomy Hospital Course: This very pleasant 57-year-old female that presented here originally in 04/20/2017 for tonsillectomy. The patient was kept on observation due to postoperative pain, and mild hypoxia. On the date that we had planned to discharge, the patient continued to have persistent hypoxia and we checked a chest x-ray and found a left lower lobe infiltrate with small pleural effusion. I suspect that this is an aspiration pneumonia. Patient was placed on Rocephin and clindamycin, and admitted and continued on oxygen and breathing therapies as necessary. Overall, the patient's voice improved, swelling improved, pain was well controlled, and I will note that she had some nausea and vomiting over the first couple of days after her tonsillectomy that could have also caused aspiration pneumonia event as well. Be that as it may, the patient did very well with Rocephin and clindamycin and her room air saturation at the time of discharge is 87%. She's been able to do activities however without shortness of breath. She may need some oxygen short-term until this pneumonia resolves completely. She does have underlying sleep apnea which I think is also contributing to some of the hypoxia. Today, she states that her throat pain is much better controlled. She is not having any vomiting. She had some nausea this morning that resolved. She does not have any chest pain and denies any shortness of breath. She is "ready to go home". I spoke to patient's primary physician, Dr. Zamarripa to let him know that we will add recheck a chest x-ray in a week and have it sent to him in terms of the result to determine whether or not this pneumonia is resolved and how the pleural effusion looks in particular. We tried to send the patient down here to do a thoracentesis but was too small to tap. I suspect that the small parapneumonic effusion but again I was not able to sample here. Assessment and Plan: 1. As per discharge assessments noted 2. Disposition: Patient is discharged home 3. Condition on discharge, stable and improved. 4. Diet: regular diet 5. Activities: resume normal activities 6. Follow-Up: 1. Dr. Zamarripa next week 2. Dr. Otero with ear nose and throat when arranged 7. Medications at the Time of Discharge: Home Medications Medication Instructions Recorded Confirmed Type Insulin Pump Cartridge [Cartridge 1 ea SQ continuous #3 box 04/21/13 04/20/18 History Stamped] Lidocaine [Lidoderm] 1 patch TRANSDERM DAILY #90 patch 10/01/16 Clinic Promethazine HCl 1 tab PO Q4-6H PRN #60 tab 10/01/16 Clinic Levothyroxine Sodium 1 tab PO DAILY #90 tab 10/14/16 Clinic Venlafaxine HCl [Venlafaxine Hcl 1 cap PO DAILY #30 cap 10/22/16 Clinic Er] promethazine 25 mg tablet 25 mg PO Q4-6H PRN #60 tab 12/18/16 04/20/18 Rx ciclopirox 8 % topical solution 1 applic TOPICAL QDAY #1 bottle 03/14/17 04/20/18 History fexofenadine 180 mg tablet 180 mg PO QDAY tab 03/14/17 04/20/18 History insulin lispro (U- 100) 100 8 unit SQ AC #1 box 05/19/17 04/20/18 Rx unit/mL subcutaneous pen blood-glucose meter 1 ea MISCELLANEOUS 6-12x/day ea 05/22/17 04/20/18 History Synthroid 125 mcg tablet 125 mcg PO QDAY #90 tab NS 06/30/17 04/20/18 Rx lidocaine 5 % topical patch 1 patch TOPICAL QHS #90 ea 06/30/17 04/20/18 Rx olopatadine 0.1 % eye drops 1 drp OP QDAY #3 bottle 07/01/17 04/20/18 Rx acetone (urine) test strips 1 strip MISCELLANEOUS QAM #50 strip 08/25/17 04/20/18 Rx docusate sodium 100 mg capsule 400 mg PO QHS #90 cap 09/10/17 04/20/18 Rx zolpidem 10 mg tablet 10 mg PO QHS PRN #90 tab 09/10/17 04/20/18 Rx clobetasol 0.05 % topical ointment 1 applic TOPICAL BID PRN #60 g 10/24/17 04/20/18 Rx metoclopramide 5 mg/5 mL oral 10 mg PO QID PRN #360 ml 10/24/17 04/20/18 Rx solution famotidine 20 mg tablet 20 mg PO BID #120 tab 11/04/17 04/20/18 Rx insulin glargine (U-100) 100 4 unit SUBCUT BID PRN #3 ml 11/18/17 04/20/18 Rx unit/mL (3 mL) subcutaneous pen venlafaxine ER 37.5 mg 37.5 mg PO QDAY #90 cap 11/28/17 04/20/18 Rx capsule,extended release 24 hr estradiol 10 mcg vaginal tablet 10 mcg VAGINAL 3XW #36 tab 12/29/17 04/20/18 Rx blood sugar diagnostic strips 1 strip MISCELLANEOUS 10XD #900 02/25/18 04/20/18 Rx strip levalbuterol HFA 45 mcg/actuation 2 puff INH Q6H PRN #3 inh 02/26/18 04/20/18 Rx aerosol inhaler fluticasone 44 mcg/actuation HFA 2 inh INH BID #1 inh 03/30/18 04/20/18 Rx aerosol inhaler montelukast 10 mg tablet 10 mg PO QDAY #60 tab 04/08/18 04/20/18 Rx C-Pap 04/17/18 History Amoxicillin Susp 500 mg PO Q8H 10 Days #150 ml 04/20/18 Rx HYDROcodone/APAP 7.5/325/15ml 10 - 15 ml PO Q4H PRN #240 cp 04/20/18 Rx [Lortab 7.5mg/325mg per 15ml Soln] Amoxicillin/K Clav Susp [Augmentin 800 mg PO BID #90 ml 04/24/18 Rx Susp] I would be fine with the patient also finishing her course of amoxicillin as certainly this aspiration pneumonia could be a strep pneumoniae and amoxicillin along with Augmentin could give better coverage for that. 8. Time, care, counseling and coordination of care for this discharge is greater than 30 minutes. The patient has had some elevated blood pressures without a diagnosis of hypertension and I feel that we should watch her clinically and see how she does as she recovers from this pneumonia and also from the tonsillectomy. If blood pressures remain persistently elevated she might benefit from antihypertensive therapy. Deferred to Dr. Zamarripa Exam - Vitals Vital Signs: Vital Signs Temperature 97.9 F Temperature Source Temporal Artery Scan Pulse Rate [Apical] 68 Pulse Rate [Pulse Oximeter] 80 Pulse Rate 64 Respiratory Rate 20 Blood Pressure [Left Arm] 157/71 Blood Pressure [Right Arm] 173/79 Blood Pressure 155/77 Pulse Ox 92 Oxygen Flow Rate 1 Oxygen Delivery Method Nasal Cannula Height 5 ft 3 in Weight 193 lb 12.8 oz - General General Appearance: No Acute Distress, Cooperative - Head Head Exam: Normal Inspection, Normocephalic, Atraumatic - Eye Eye Exam: POSITIVE: No Scleral Icterus - ENT ENT Exam: POSITIVE: Mucous Membranes Moist - Neck Neck Exam: JVP is not Raised Additional Neck Exam Details: Swelling resolved and neck. The patient is using ice packs here and there as it is helpful for pain - Respiratory Respiratory Exam: POSITIVE: Clear to Auscultation - Bilaterally, Breathing Non Labored - Cardiovascular Cardiovascular Exam: POSITIVE: RRR, No Murmur, No Clicks, No Gallops, No Rubs, No JVD - GI/Abdominal GI/Abdominal Exam: POSITIVE: Normal Bowel Sounds, Non Tender, Non Distended, Soft - Extremities Extremities Exam: POSITIVE: No Clubbing Present, No Edema Present, No Cyanosis Present, Negative Ratna's sign - Neurological Neurological Exam: POSITIVE: Alert, Oriented x 3, No Facial Droop, Speech Intact / Clear, Moves All Extremities Equally - Psychiatric Psychiatric Exam: POSITIVE: Normal Affect, Normal Mood Data Peritnent Studies: 04/23/18 04/23/18 05:15 05:15 WBC 5.35 Hgb 11.9 L Hct 37.7 Plt Count 224 Sodium 139 Potassium 4.0 Chloride 105 Carbon Dioxide 28 Anion Gap 6 BUN 10 Creatinine 0.8 Estimated GFR > 60 BUN/Creatinine Ratio 12.50 Glucose 121 H Calculated Osmolality 287.0 Calcium 8.7 Procedures: See Dr. Otero's note regarding tonsillectomy Patient Problems - Patient Problem List (1) Aspiration pneumonia Current Visit: Yes Status: Acute Code(s): J69.0 - Pneumonitis due to in halation of food and vomit Qualifiers: Aspiration pneumonia type: unspecified Laterality: left Lung location: lower lobe of lung Qualified Code(s): J69.0 - Pneumonitis due to inhalation of food and vomit Category: Medical (2) Diabetes mellitus type 1 Current Visit: Yes Status: Acute Qualifiers: Diabetes mellitus complication status: with neurologic complications Diabetes mellitus complication detail: with autonomic neuropathy Qualified Code(s): E10.43 - Type 1 diabetes mellitus with diabetic autonomic (poly)neuropathy Category: Medical (3) Gastroparesis due to DM Current Visit: Yes Status: Chronic Onset Date: 08/25/14 Code(s): E11.43 - Type 2 diabetes mellitus with diabetic autonomic (poly)neuropathy; K31.84 - Gastroparesis Category: Medical (4) Hypothyroidism Current Visit: Yes Status: Acute Code(s): E03.9 - Hypothyroidism, unspecified Qualifiers: 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8 - Other specified hypothyroidism; E06.3 - Autoimmune thyroiditis Category: Medical (5) Obstructive sleep apnea Current Visit: Yes Status: Chronic Onset Date: 10/14/16 Code(s): G47.33 - Obstructive sleep apnea (adult) (pediatric) Category: Medical (6) Status post tonsillectomy Current Visit: Yes Status: Acute Code(s): Z90.89 - Acquired absence of other organs Category: Surgical
[2018-04-24] MEDS: cefTRIAXone Inj 2 GM in Sodium Chloride 0.9% 100 ML IV SCH (14:57)
== END 2018-04-24 16:45 | disposition home or self-care (01) | DRG 989 ==
LOC: OR 08:19 → MED/SURG 08:19
PROVIDERS: ADMIT Otolaryngology; ATTEND Otolaryngology

== ENCOUNTER 2018-04-25 14:02 | Observation (INO) ==
[2018-04-25] MEDS ORDERED: Sodium Chloride 0.9% 1,000 ML PRIMARY IV ONE (14:28)
[2018-04-25] MEDS ORDERED: FAMOTIDINE 20 MG/2 ML VIAL IVP ONE (14:31)
[2018-04-25] MEDS ORDERED: ONDANSETRON 4 MG/2 ML VIAL IVP ONE (14:31)
--- NOTE | 2018-04-25 14:38 | EKG ---
[address] [address] Measurements Intervals [place] Rate: 78 P: 62 [place]: 141 QRS: 60 QRSD: 76 T: 58 QT: 365 QTc: 398 Interpretive Statements SINUS RHYTHM POSSIBLE ANTERIOR MYOCARDIAL INFARCTION OF INDETERMINATE AGE Compared to ECG 05/02/2015 15:46:52 Myocardial infarct finding now present Electronically Signed On 04-25-18 16:22:05 [facility] by Sylvester Gayle [email or web address]
[2018-04-25 14:46] LABS: BASOPHILS # (AUTO) 0.05 10*3/UL; BASOPHILS % (AUTO) 0.9 % (0-1); EOSINOPHILS # (AUTO) 0.05 10*3/UL; EOSINOPHILS % (AUTO) 0.9 % (0-8); Hematocrit [HCT] 40.4 % (37.0-47.0); Hemoglobin [HGB] 13.4 g/dL (12.0-16.0); LYMPHOCYTES # (AUTO) 1.17 10*3/uL; MEAN CORPUSCULAR HEMOGLOBIN 27.5 PG (27-31); MEAN CORPUSCULAR HGB CONC 33.2 g/dL (33-37); MEAN PLATELET VOLUME 11.4 FL (7.4-12.2); MONOCYTES # (AUTO) 0.47 10*3/UL (0.3-0.8); NEUTROPHILS # (AUTO) 4.11 10*3/UL; PLATELET MORPHOLOGY COMMENT NORMAL MORPHOLOGY (NORM); RBC MORPHOLOGY COMMENT NORMAL MORPHOLOGY (NORM); RED BLOOD COUNT 4.87 10^6/uL (4.20-5.40); WBC MORPHOLOGY COMMENT NORMAL MORPHOLOGY (NORM)
[2018-04-25 14:50] LABS: BLOOD UREA NITROGEN 19 mg/dL (7-22); BUN/CREATININE RATIO 23.75 (6-20); SERUM ALBUMIN 4.1 g/dL (3.5-4.8)
[2018-04-25 14:52] LABS: LIPASE 20 IU/L (23-300)
[2018-04-25] MEDS ORDERED: MORPHINE SULFATE 2 MG/1 ML IVP ONE (15:04)
--- NOTE | 2018-04-25 15:54 | DI ---
EXAM: XR Chest, 2 Views CLINICAL HISTORY: ITS.REASON chest pain Physician Notes: Tech Comments: TECHNIQUE: Frontal and lateral views of the chest. COMPARISON: Chest radiograph on 04/22/2018 FINDINGS: Hardware: None. Lungs/pleura: Decreased bibasilar atelectasis. No focal consolidation. No pleural effusion or pneumothorax. Heart/mediastinum: Normal. No cardiomegaly. Soft tissues: Unremarkable. Bones: No acute fracture. Changes of the spine. Upper abdomen: Normal. IMPRESSION: No acute disease identified.
[2018-04-25] MEDS ORDERED: LIDOCAINE W/ SODIUM BICARB 0.5 ML SYR SUBD PRN (17:30)
[2018-04-25] MEDS ORDERED: CICLOPIROX TOPICAL SCH (17:30)
[2018-04-25] MEDS ORDERED: Promethazine Tab 25 MG TAB PO PRN (17:30)
[2018-04-25] MEDS ORDERED: NITROGLYCERIN 0.4 MG SL TAB (BOTTLE OF 3) SL PRN (17:30)
[2018-04-25] MEDS ORDERED: Insulin Glargine SoloStar Inj 100 UNIT/ML INSULN.PEN SUBCUT PRN (17:30)
[2018-04-25] MEDS ORDERED: CLOBETASOL PROPIONATE TOPICAL PRN (17:30)
[2018-04-25] MEDS ORDERED: CALCIUM CARBONATE 500 MG (TUMS) CHEWABLE TABLET PO PRN (17:30)
[2018-04-25] MEDS ORDERED: ZOLPIDEM 10 MG TABLET PO PRN (17:30)
[2018-04-25] MEDS ORDERED: LEVALBUTEROL TARTRATE INH PRN (17:30)
[2018-04-25] MEDS ORDERED: HYDROcodone/APAP 7.5/325/15ml 15 ML CUP PO PRN (17:30)
--- NOTE | 2018-04-25 17:32 | PDOC ---
HPI - History of Present Illness History of Present Illness: This very nice 57-year-old female with past medical history significant for diabetes type I, also status post tonsillectomy with possible aspiration pneumonia and was discharged from the hospital yesterday afternoon. She did have some high blood pressures. Which resolved in the postop period. Comes back to the ER today complaining some chest tightness and nausea the patient states it is hard for her to describe it's just the some kind of heaviness poi nting to work site for the process. She did have the strictures before which have been dilated by Dr. buck Benitez. She has no pain at present time while I'm evaluating her labs were reviewed within normal limits. Chest x-ray normal. Past Medical History Medical History: 1. Type I diabetes on insulin pump. 2. Hypothyroidism. 3. History of esophageal stricture status post dilatation. 4. History of palpitation secondary to SVT, status post ablation. 5. Sleep apnea on CPAP, status post tonsillectomy today. Surgical History: 1. Ablation. 2. Tonsillectomy today. 3. Knee surgery. 4. Hand surgery. 5. History of EGD and colonoscopy. 6. History of sinus surgery Family History: Reviewed an Not Pertinent Pertinent Family History: Patient was adopted and does not know her family history Past Social History: Does not smoke, does not drink. No drugs. to Dr. Batista. Has 1 child that is a NICU nurse in [place]. Tobacco Use: Never Smoker In the Past 12 Months, Have Used or Abuse Any of the Following Substance: None Medication / Allergies Home Medications: Home Medications Medication Instructions Recorded Confirmed Type Insulin Pump Cartridge [Cartridge 1 ea SQ continuous #3 box 04/21/13 04/25/18 History Stamped] Lidocaine [Lidoderm] 1 patch TRANSDERM DAILY #90 patch 10/01/16 Clinic Promethazine HCl 1 tab PO Q4-6H PRN #60 tab 10/01/16 Clinic Levothyroxine Sodium 1 tab PO DAILY #90 tab 10/14/16 Clinic Venlafaxine HCl [Venlafaxine Hcl 1 cap PO DAILY #30 cap 10/22/16 Clinic Er] promethazine 25 mg tablet 25 mg PO Q4-6H PRN #60 tab 12/18/16 04/25/18 Rx ciclopirox 8 % topical solution 1 applic TOPICAL QDAY #1 bottle 03/14/17 04/25/18 History insulin lispro (U- 100) 100 8 unit SQ AC #1 box 05/19/17 04/25/18 Rx unit/mL subcutaneous pen blood-glucose meter 1 ea MISCELLANEOUS 6-12x/day ea 05/22/17 04/25/18 History Synthroid 125 mcg tablet 125 mcg PO QDAY #90 tab NS 06/30/17 04/25/18 Rx lidocaine 5 % topical patch 1 patch TOPICAL QHS #90 ea 06/30/17 04/25/18 Rx olopatadine 0.1 % eye drops 1 drp OP QDAY #3 bottle 07/01/17 04/25/18 Rx acetone (urine) test strips 1 strip MISCELLANEOUS QAM #50 strip 08/25/17 04/25/18 Rx docusate sodium 100 mg capsule 400 mg PO QHS #90 cap 09/10/17 04/25/18 Rx zolpidem 10 mg tablet 10 mg PO QHS PRN #90 tab 09/10/17 04/25/18 Rx clobetasol 0.05 % topical ointment 1 applic TOPICAL BID PRN #60 g 10/24/17 04/25/18 Rx metoclopramide 5 mg/5 mL oral 10 mg PO QID PRN #360 ml 10/24/17 04/25/18 Rx solution famotidine 20 mg tablet 20 mg PO BID #120 tab 11/04/17 04/25/18 Rx insulin glargine (U-100) 100 4 unit SUBCUT BID PRN #3 ml 11/18/17 04/25/18 Rx unit/mL (3 mL) subcutaneous pen venlafaxine ER 37.5 mg 37.5 mg PO QDAY #90 cap 11/28/17 04/25/18 Rx capsule,extended release 24 hr estradiol 10 mcg vaginal tablet 10 mcg VAGINAL 3XW #36 tab 12/29/17 04/25/18 Rx blood sugar diagnostic strips 1 strip MISCELLANEOUS 10XD #900 02/25/18 04/25/18 Rx strip levalbuterol HFA 45 mcg/actuation 2 puff INH Q6H PRN #3 inh 02/26/18 04/25/18 Rx aerosol inhaler fluticasone 44 mcg/actuation HFA 2 inh INH BID #1 inh 03/30/18 04/25/18 Rx aerosol inhaler montelukast 10 mg tablet 10 mg PO QDAY #60 tab 04/08/18 04/25/18 Rx C-Pap 04/17/18 History Amoxicillin Susp 500 mg PO Q8H 10 Days #150 ml 04/20/18 04/25/18 Rx HYDROcodone/APAP 7.5/325/15ml 10 - 15 ml PO Q4H PRN #240 cp 04/20/18 04/25/18 Rx [Lortab 7.5mg/325mg per 15ml Soln] Amoxicillin/K Clav Susp [Augmentin 800 mg PO BID #90 ml 04/24/18 04/25/18 Rx Susp] Allergies/Adverse Reactions: Allergies Allergy/AdvReac Type Severity Reaction Status Date / Time bacitracin zinc Allergy Intermediate burn,bliste Verified 04/25/18 14:18 [From Neosporin r ([id number])] neomycin sulfate Allergy Intermediate burn,bliste Verified 04/25/18 14:18 [From Neosporin r ([id number])] polymyxin B Allergy Intermediate burn,bliste Verified 04/25/18 14:18 [From Neosporin r ([id number])] bacitracin Allergy blister,bur Verified 04/25/18 14:18 n povidone-iodine Allergy .BURNING Verified 04/25/18 14:18 [From Betadine] soap [From Betadine] Allergy .BURNING Verified 04/25/18 14:18 Sulfa (Sulfonamide Allergy HIVES Verified 04/25/18 14:18 Antibiotics) Beta-Blockers AdvReac NOT Verified 04/25/18 16:06 (Beta-Adrenergic Bloc APPLICABLE Review of Systems - Review of Systems All Systems: Reviewed & No Additional Complaints Except as Stated - Constitutional Constitutional: REPORTS: Fatigue - Respiratory Respiratory: DENIES: Negative System Review, Cough, Sputum, Dyspnea At Rest, Dyspnea with Exertion, Pleuritic Pain, Hemoptysis, Wheezing, Other, See HPI - Cardiovascular Cardiovascular: REPORTS: Chest Pain - Gastrointestinal Gastrointestinal / Abdominal: REPORTS: Nausea. DENIES: Vomiting, Diarrhea, Constipation, Abdominal Pain Exam - Vitals Vital Signs: Vital Signs Temperature 98.1 F Temperature Source Temporal Artery Scan Pulse Rate [Pulse Oximeter 100 Right] Pulse Rate 87 Respiratory Rate 20 Blood Pressure [Left Arm] 154/70 Pulse Ox 97 Oxygen Delivery Method Room Air Height 5 ft 3 in Weight 193 lb - General General Appearance: No Acute Distress, Cooperative - ENT ENT Exam: POSITIVE: Normal Exam, Normal External Ear Exam, Normal Oropharynx, TM's Normal Bilaterally, Mucous Membranes Moist - Respiratory Respiratory Exam: POSITIVE: Clear to Auscultation - Bilaterally, Breathing Non Labored, Normal To Percussion, Normal to Percussion and Palpation - Cardiovascular Cardiovascular Exam: POSITIVE: RRR, No Murmur, No Clicks, No Gallops, No Rubs, PMI Non-Displaced - GI/Abdominal GI/Abdominal Exam: POSITIVE: Normal Bowel Sounds, Non Tender, Non Distended, Soft, No Masses, No Hepatomegaly, No Splenomegaly, No Organomegaly - Extremities Extremities Exam: POSITIVE: No Clubbing Present, No Edema Present, No Cyanosis Present - Neurological Neurological Exam: POSITIVE: Alert, Oriented x 3, No Facial Droop, Speech Intact / Clear, Moves All Extremities Equally - Psychiatric Psychiatric Exam: POSITIVE: Normal Affect, Normal Mood Results - Labs CBC and BMP: 04/25/18 14:10 04/25/18 14:10 Assessment and Plan - Patient Problems (1) Chest pain Current Visit: Yes Status: Acute Code(s): R07.9 - Chest pain, unspecified - Assessment / Plan Additional Assessment/Plan Details: #1 chest pain atypicalnegative troponins EKG no acute findings other than Q wav es in anterior leads I was unable to find the old EKG of 05/02/2015 I did find a stress test in 2014 which showed some calcifications in the LAD. An echo report which was essentially normal with mild mitral regurg. She did have SVT in the past and this was ablated. I will order troponins 3 every 6 but the patient on telemetry hydrated with IV fluids. This could also represent stricture which she had in the past. Also we could have lingering anesthesia with nausea nevertheless considering the history of type I diabetes for many years I will order a stress test I discussed this with the Dr. Batista and his in the emergency room For her depression, diabetes continue home meds with insulin pump which the patient will adjust
[2018-04-25] MEDS: Sodium Chloride 0.9% 1,000 ML PRIMARY IV SCH (17:53)
[2018-04-25] MEDS ORDERED: Metoclopramide Tab 10 MG TAB PO PRN (18:00)
[2018-04-25] MEDS: HEPARIN 5000 UNIT/1 ML SUBCUT SCH (19:30)
[2018-04-25] MEDS ORDERED: CloNIDine Tab 0.1 MG TABLET PO ONE (20:33)
--- NOTE | 2018-04-25 20:47 | EKG ---
[address] [place] [id number] Measurements Intervals [place] Rate: 84 P: 52 [place]: 147 QRS: 14 QRSD: 75 T: 37 QT: 347 QTc: 389 Interpretive Statements SINUS RHYTHM Compared to ECG 04/25/2018 14:37:07 Myocardial infarct finding no longer present (suggesting placement of V4 difference in the last study) No acute injury pattern. Electronically Signed On 04-27-18 08:14:57 [facility] by Sudhakar Zimmer MD [email or web address]
[2018-04-25] MEDS ORDERED: DOCUSATE 100 MG CAPSULE PO SCH (21:00)
[2018-04-25] MEDS: FAMOTIDINE 20 MG TABLET PO SCH (21:12)
[2018-04-25] MEDS: LIDOCAINE 700 MG PATCH TOPICAL SCH (21:12)
[2018-04-25] MEDS: DOCUSATE 100 MG CAPSULE PO SCH (21:17)
[2018-04-25] MEDS: INSULIN PUMP CARTRIDGE SQ SCH (21:56)
[2018-04-25] MEDS: FLUTICASONE PROPIONATE 44 MCG INH SCH (21:56)
[2018-04-26] MEDS: HEPARIN 5000 UNIT/1 ML SUBCUT SCH ×3 (01:43→17:28)
[2018-04-26] MEDS: Sodium Chloride 0.9% 1,000 ML PRIMARY IV SCH ×3 (01:43→19:18)
[2018-04-26 03:03] LABS: BASOPHILS # (AUTO) 0.07 10*3/UL; BASOPHILS % (AUTO) 1.5 % (0-1); EOSINOPHILS # (AUTO) 0.16 10*3/UL; EOSINOPHILS % (AUTO) 3.4 % (0-8); Hemoglobin [HGB] 11.6 g/dL (12.0-16.0); LYMPHOCYTES # (AUTO) 2.06 10*3/uL; MEAN CORPUSCULAR HEMOGLOBIN 26.9 PG (27-31); MEAN CORPUSCULAR HGB CONC 32.2 g/dL (33-37); MEAN CORPUSCULAR VOLUME 83.5 FL (81-99); MEAN PLATELET VOLUME 10.7 FL (7.4-12.2); MONOCYTES # (AUTO) 0.43 10*3/UL (0.3-0.8); MONOCYTES % (AUTO) 9.2 % (5-15); NEUTROPHILS # (AUTO) 1.94 10*3/UL; NEUTROPHILS % (AUTO) 41.6 % (50-80); RED BLOOD COUNT 4.31 10^6/uL (4.20-5.40)
[2018-04-26 03:28] LABS: CHOL/HDL RATIO 3.37 RATIO (0-4.0)
[2018-04-26 03:31] LABS: PLATELET MORPHOLOGY COMMENT NORMAL MORPHOLOGY (NORM); RBC MORPHOLOGY COMMENT NORMAL MORPHOLOGY (NORM); WBC MORPHOLOGY COMMENT NORMAL MORPHOLOGY (NORM)
[2018-04-26] MEDS: LEVOTHYROXINE 125 MCG TABLET PO SCH (04:37)
[2018-04-26] MEDS ORDERED: Insulin Lispro Flexpen 300 UNIT/3 ML INSULN.PEN SUBCUT SCH (07:00)
--- NOTE | 2018-04-26 07:03 | PDOC ---
General Adult HPI - General Chief Complaint: Nausea / Vomiting / Diarrhea Stated Complaint: nausea, dehydration, weakness Date Seen by Provider: 04/25/18 Time Seen by Provider: 14:15 Source: POSITIVE: Patient, Spouse, Old records Exam Limitations: POSITIVE: No limitations Nurse's Notes Reviewed & Considered: Yes - History of Present Illness Initial Comment: The patient is a 57-year-old female. Patient states she had a tonsillectomy Friday, approximately 5 days ago. Apparently this hospitalization was complicated by an aspiration pneumonia for which she was treated, and then discharged last night. She states that around 7 AM this morning she became very "weak and nauseated ". She states that around 9 AM this morning she was eating breakfast and she "got real dizzy and my heart started beating fast ". She states she "almost passed out. She reportedly has a history of a cardiac dysrhythmia and underwent cardiac ablation in [place]. She also complains of some epigastric and subxiphoid discomfort. History of gastroparesis. She has a history of diabetes mellitus for which she takes Humalog. 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 Have you received a tetanus shot in the past 10 years?: No Body Location Affected: REPORTS: Chest, Other (As above) Timing: REPORTS: Abrupt Duration: 4-6 hours Quality: REPORTS: "Pain" (Some epigastric discomfort as above) Context: REPORTS: Other (As above) Modifying Factors: improves with: Nothing Similar Symptoms Previously: No Recent Care Received: REPORTS: Recently Seen, Treated by MD, Hospitalized (As a alberto) Any Prior Injuries Related to Current Complaint?: No - Patient Home Medications Home Medications: Home Medications Insulin Pump Cartridge [Cartridge Stamped] 1 ea SQ continuous #3 box 04/21/13 Lidocaine [Lidoderm] 1 patch TRANSDERM DAILY #90 patch 10/01/16 Promethazine HCl 1 tab PO Q4-6H PRN #60 tab 10/01/16 Levothyroxine Sodium 1 tab PO DAILY #90 tab 10/14/16 Venlafaxine HCl [Venlafaxine Hcl Er] 1 cap PO DAILY #30 cap 10/22/16 promethazine 25 mg tablet 25 mg PO Q4-6H PRN #60 tab 12/18/16 ciclopirox 8 % topical solution 1 applic TOPICAL QDAY #1 bottle 03/14/17 insulin lispro (U- 100) 100 unit/mL subcutaneous pen 8 unit SQ AC #1 box 05/19/17 blood-glucose meter 1 ea MISCELLANEOUS 6-12x/day ea 05/22/17 Synthroid 125 mcg tablet 125 mcg PO QDAY #90 tab NS 06/30/17 lidocaine 5 % topical patch 1 patch TOPICAL QHS #90 ea 06/30/17 olopatadine 0.1 % eye drops 1 drp OP QDAY #3 bottle 07/01/17 acetone (urine) test strips 1 strip MISCELLANEOUS QAM #50 strip 08/25/17 docusate sodium 100 mg capsule 400 mg PO QHS #90 cap 09/10/17 zolpidem 10 mg tablet 10 mg PO QHS PRN #90 tab 09/10/17 clobetasol 0.05 % topical ointment 1 applic TOPICAL BID PRN #60 g 10/24/17 metoclopramide 5 mg/5 mL oral solution 10 mg PO QID PRN #360 ml 10/24/17 famotidine 20 mg tablet 20 mg PO BID #120 tab 11/04/17 insulin glargine (U-100) 100 unit/mL (3 mL) subcutaneous pen 4 unit SUBCUT BID PRN #3 ml 11/18/17 venlafaxine ER 37.5 mg capsule,extended release 24 hr 37.5 mg PO QDAY #90 cap 11/28/17 estradiol 10 mcg vaginal tablet 10 mcg VAGINAL 3XW #36 tab 12/29/17 blood sugar diagnostic strips 1 strip MISCELLANEOUS 10XD #900 strip 02/25/18 levalbuterol HFA 45 mcg/actuation aerosol inhaler 2 puff INH Q6H PRN #3 inh 02/26/18 fluticasone 44 mcg/actuation HFA aerosol inhaler 2 inh INH BID #1 inh 03/30/18 montelukast 10 mg tablet 10 mg PO QDAY #60 tab 04/08/18 C-Pap 04/17/18 Amoxicillin Susp 500 mg PO Q8H 10 Days #150 ml 04/20/18 HYDROcodone/APAP 7.5/325/15ml [Lortab 7.5mg/325mg per 15ml Soln] 10 - 15 ml PO Q4H PRN #240 cp 01/07/19 Amoxicillin/K Clav Susp [Augmentin Susp] 800 mg PO BID #90 ml 04/24/18 - Patient Allergies Allergies/Adverse Reactions: Allergies Allergy/AdvReac Type Severity Reaction Status Date / Time bacitracin zinc Allergy Intermediate burn,bliste Verified 04/26/18 06:34 [From Neosporin r ([id number])] neomycin sulfate Allergy Intermediate burn,bliste Verified 04/26/18 06:34 [From Neosporin r ([id number])] polymyxin B Allergy Intermediate burn,bliste Verified 04/26/18 06:34 [From Neosporin r ([id number])] bacitracin Allergy blister,bur Verified 04/26/18 06:34 n povidone-iodine Allergy .BURNING Verified 04/26/18 06:34 [From Betadine] soap [From Betadine] Allergy .BURNING Verified 04/26/18 06:34 Sulfa (Sulfonamide Allergy HIVES Verified 04/26/18 06:34 Antibiotics) Beta-Blockers AdvReac NOT Verified 04/26/18 06:34 (Beta-Adrenergic Bloc APPLICABLE Past Medical History - heen HEENT History: Cataracts Additional HEENT History: GLASSES Cardiovascular History: Hyperlipidemia, Other (please comment) Additional Cardiovasular History: SVT, pt reports able to convert to sinus rhythm by vagal or massage. AVNRT Respiratory History: Asthma, Home CPAP Use Additional Respiratory History: ACUTE BRONCHITIS. REACTIVE AIRWAY DISEASE. JP Gastrointestinal History: Other (please comment) Additional Gastrointestinal History: GASTROPARESIS/DIFFICULTY SWALLOWING. 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 HASHIMOTOS THROIDITIS Musculoskeletal History: Arthritis, Joint Pain, Osteoarthritis Prosthesis or Implant: Yes (L THUMB) Additional Musculoskeletal History: left shoulder, knee scopes, bilateral hand surgery, left thumb Neurological History: Denies History Blood Disorders: Other (please comment) Additional Blood Disorders History: VITAMIN D DEFICIENCY Psychiatric History: Depression Additional Psychiatric History: Post menopausal depression History of Sexually Transmitted Diseases: No Female Reproductive History: Denies History Obstetrical History: Denies History Cancer History: Denies History In Past Year Been Physically Harmed or Verbally Threatened: No History of MDRO: No History of Other Communicable Diseases: Yes (MEASLES, VARICELLA) Tobacco Use: Never Smoker Alcohol Use: None In the Past 12 Months, Have Used or Abuse Any Substance: None Previous Surgical History: Yes Type / Date of Surgery: COLONOSCOPY/EGD/R CARPAL TUNNEL RELEASE 1999/TRIGGER FINGER X10 FROM [id number]/LEFT KNEE SCOPE 2009/SHOULDER SCOPE RELEASE LEFT FROZEN SHOULDER 2006/SINUS SURGERY 1993/ LEFT THUMB. ESOPHAGEAL DIL ATION/TONSILECTOMY Anesthesia Reactions: No Malignant Hyperthermia: No Significant Family History: No pertinent family hx Additional Family History: Adopted Past Medical History Reviewed: Reviewed - No Changes ROS - Limitations ROS Limitations: No Limitations Constitution: REPORTS: Weakness, Other (Dizziness) Cardiovascular: REPORTS: Heart Racing Respiratory: REPORTS: Denies Resp Symptoms Neurological: REPORTS: Other (Near-syncope) Gastrointestinal: REPORTS: Nausea Endocrine: REPORTS: Denies Symptoms Musculoskeletal: REPORTS: Denies MS Symptoms Genitourinary: REPORTS: Denies Symptoms Eyes: REPORTS: Denies Symptoms ENT: REPORTS: Denies Symptoms Skin: REPORTS: Denies Skin Symptoms Lympathic: REPORTS: Denies Lympathic Symptoms Psychiatric: POSITIVE: Denies Psych Symptoms General Adult Exam - General Appearance General Appearance: POSITIVE: Alert, Cooperative, No Acute Distress, No Evidence of Trauma - HEENT HEENT: POSITIVE: Head Inspection Nml, Eyes Inspection Nml, Ears Inspection Nml, Nose Inspection Nml, Oral/Dental Inspect. Nml, Pharynx Inspect. Nml, PERRL, EOMI - Pupils Pupil Size: 3 mm: Bilateral (PERRLA) - Neck Neck: POSITIVE: Normal Inspection, Thyroid Normal - Respiratory Respiratory: POSITIVE: No Respiratory Distress, Breath Sounds Normal, Chest Non- Tender - Cardiovascular Cardiovascular: POSITIVE: Regular Rate & Rhythm, No Murmur, No Gallop, PMI Normal Peripheral Pulses: Radial (R): 2+, Radial (L): 2+ - Abdomen Abdomen: Soft: (All Quadrants), Normal Bowel Sounds: (All Quadrants), Denies Tenderness: (All Quadrants), No Splenomegaly: (All Quadrants), No Hepatomegaly: (All Quadrants), No Guarding: (All Quadrants), No Rebound: (All Quadrants), No Palpable Pulse: (All Quadrants), No Palpabale Mass: (All Quadrants), No Disten tion: (All Quadrants), No Rigidity: (All Quadrants) - Back Back: POSITIVE: Normal Inspection - Skin Skin: POSITIVE: Normal Color, Warm, Dry, No Rash - Extremities Extremity: Non-Tender: (All Extremities), Normal ROM: (All Extremities), Normal Inspection: (All Extremities) - Neurological / Psychological Neurological: POSITIVE: Affect Apporpriate, Oriented X3, refrigeration unit repairer Normal As Tested, Motor Normal, Sensation Normal Images - Complete Complete: 1 - Some discomfort here General Adult Progress - Results Reviewed by me Xrays/CTs/US Reviewed by me: Yes Discussed with Radiologist: Yes Radiology Findings: Chest x-ray normal Lab Results Reviewed by Me: Yes Lab Results:: Laboratory Results 04/25/18 04/25/18 04/25/18 14:10 14:10 14:10 WBC 5.86 RBC 4.87 Hgb 13.4 Hct 40.4 MCV 83.0 MCH 27.5 MCHC 33.2 RDW Std Deviation 39.0 RDW Coeff of Pattie 13.1 Plt Count 271 MPV 11.4 Immature Gran % (Auto) 0.2 Neut % (Auto) 70.0 Lymph % (Auto) 20.0 [place] % (Auto) 8.0 Eos % (Auto) 0.9 Baso % (Auto) 0.9 Immature Gran # (Auto) 0.01 Neut # (Auto) 4.11 Lymph # (Auto) 1.17 [place] # (Auto) 0.47 Eos # (Auto) 0.05 Baso # (Auto) 0.05 WBC Morphology Comment Normal morphology Plt Morphology Comment Normal morphology RBC Morph Comment Normal morphology D-Dimer 0.51 Sodium 133 L D Potassium 4.3 Chloride 101 Carbon Dioxide 21 L Anion Gap 11 BUN 19 Creatinine 0.8 Estimated GFR > 60 BUN/Creatinine Ratio 23.75 H Glucose 202 H Calculated Osmolality 283.0 Calcium 9.4 Total Bilirubin 0.7 AST 33 ALT 25 Alkaline Phosphatase 87 CK-MB (CK-2) Troponin I Total Protein 7.1 Albumin 4.1 Globulin 2.9 Albumin/Globulin Ratio 1.40 Amylase Lipase 04/25/18 04/25/18 14:10 14:10 WBC RBC Hgb Hct MCV MCH MCHC RDW Std Deviation RDW Coeff of Pattie Plt Count MPV Immature Gran % (Auto) Neut % (Auto) Lymph % (Auto) [place] % (Auto) Eos % (Auto) Baso % (Auto) Immature Gran # (Auto) Neut # (Auto) Lymph # (Auto) [place] # (Auto) Eos # (Auto) Baso # (Auto) WBC Morphology Comment Plt Morphology Comment RBC Morph Comment D-Dimer Sodium Potassium Chloride Carbon Dioxide Anion Gap BUN Creatinine Estimated GFR BUN/Creatinine Ratio Glucose Calculated Osmolality Calcium Total Bilirubin AST ALT Alkaline Phosphatase CK-MB (CK-2) 0.85 Troponin I < 0.012 Total Protein Albumin Globulin Albumin/Globulin Ratio Amylase 54 Lipase 20 L CBC and BMP: 04/26/18 03:00 04/25/18 14:10 EKG Interpreted/Reviewed By Me:: Yes (Q waves V1, V2, V3, and V4) EKG Interpretation:: POSITIVE: Normal Sinus Rhythm, Normal Rate, Normal Intervals, Normal [place], Normal ST/T, Abnormal EKG. NEGATIVE: Normal QRS (Q waves V1, V2, V3, and V4) - Patient's Progress Pain Medication Addressed: POSITIVE: Not Applicable School/Work Release Addressed: POSITIVE: Not Applicable Re-Examine Time: 16:15 Re-Examine Comment: Patient hydrated with normal saline and was given Pepcid IV, 40 mg. She is also given Zofran IV for her nausea. Results of x-ray and laboratory studies reviewed with patient and her . Patient states she still feels quite nauseated and lightheaded and dizzy. Alternatives are true disposition discussed with patient and her . Patient admitted for further observation and evaluation as necessary. Status: POSITIVE: Improved (Patient's feels some improved on discharge), Re- Examined Antibiotics Given: No - Consult Counseled: POSITIVE: Patient, Family, RE: Lab Results, RE: Radiology Results, RE: DX, RE: Need for F/U Patient Care Time - Estimated PCT Patient Care Time (In Minutes): 45 Vital Signs - VS Reviewed Vital Signs Reviewed: Yes Discharge Clinical Impression: Nausea, Abdominal pain, Chest pain, Dizziness, Weakness Discharge Disposition: Admit to Inpatient Condition: Fair Date Decision to Admit to Inpatient: 04/25/18 Time Decision to Admit to Inpatient: 16:10
[2018-04-26] MEDS: FAMOTIDINE 20 MG TABLET PO SCH ×2 (09:31→21:18)
[2018-04-26] MEDS: Montelukast Tab 10 MG TAB PO SCH (09:32)
[2018-04-26] MEDS: VENLAFAXINE XR 37.5 MG CAP PO SCH (09:32)
[2018-04-26] MEDS: FLUTICASONE PROPIONATE 44 MCG INH SCH ×2 (09:33→18:50)
[2018-04-26] MEDS: Patch Removal LIDOCAINE PATCH TRANSDERM SCH (10:03)
[2018-04-26] MEDS: OLOPATADINE HCL 0.1% OP SCH (10:03)
--- NOTE | 2018-04-26 10:20 | PDOC(PROG) ---
Interval History: Patient feels like 1 million bucks today she has no pain in her throat or chest tightness and heaviness has disappeared and is back to her normal self. Blood pressure is now controlled on Norvasc 10 mg. She said she started feeling better after her blood pressure was down a little. Objective : Data - Labs CBC and BMP: 04/26/18 03:00 04/25/18 14:10 Objective : Exam - Head Head Exam: Normal Inspection, Normocephalic, Atraumatic - Respiratory Respiratory Exam: Clear to Auscultation - Bilaterally, Breathing Non Labored, Normal To Percussion, Normal to Percussion and Palpation - Cardiovascular Cardiovascular Exam: RRR, No Murmur, No Clicks, No Gallops, No Rubs, PMI Non- Displaced - GI/Abdominal GI/Abdominal Exam: Normal Bowel Sounds, Non Tender, Non Distended, Soft, No Masses, No Hepatomegaly, No Splenomegaly, No Organomegaly Assessment and Plan - Patient Problems (1) Chest pain Current Visit: Yes Status: Acute Comment: Resolved most likely from hypertension patient on Norvasc 10 mg with better BP control. Nevertheless troponins remained negative 3 Lexiscan stress test will be done in the morning considering her history of long-standing d iabetes Code(s): R07.9 - Chest pain, unspecified (2) Dehydration Current Visit: Yes Status: Acute Comment: Patient appeared to be dehydrated with hemoconcentration hemoglobin 11 recommended to folic acid B12 once discharged and possible follow-up with the Dr. buck Benitez possible colonoscopy EGD Code(s): E86.0 - Dehydration
[2018-04-26] MEDS: INSULIN PUMP CARTRIDGE SQ SCH (18:02)
[2018-04-26] MEDS: DOCUSATE 100 MG CAPSULE PO SCH (21:17)
[2018-04-26] MEDS: LISINOPRIL 20 MG TABLET PO SCH (21:18)
[2018-04-26] MEDS: LIDOCAINE 700 MG PATCH TOPICAL SCH (21:18)
[2018-04-26] MEDS ORDERED: ONDANSETRON 4 MG/2 ML VIAL IVP PRN (21:25)
[2018-04-26] MEDS ORDERED: Magnesium Sulfate 2gm (Premix) 2 GM/50 ML BAG IV ONE (23:38)
[2018-04-27] MEDS: HEPARIN 5000 UNIT/1 ML SUBCUT SCH ×2 (01:31→11:38)
[2018-04-27] MEDS: Sodium Chloride 0.9% 1,000 ML PRIMARY IV SCH (02:54)
[2018-04-27] MEDS: LEVOTHYROXINE 125 MCG TABLET PO SCH (04:30)
[2018-04-27 05:10] LABS: Hematocrit [HCT] 35.4 % (37.0-47.0); Hemoglobin [HGB] 11.2 g/dL (12.0-16.0); MEAN CORPUSCULAR HEMOGLOBIN 26.4 PG (27-31); MEAN CORPUSCULAR HGB CONC 31.6 g/dL (33-37); MEAN CORPUSCULAR VOLUME 83.5 FL (81-99); MEAN PLATELET VOLUME 11.3 FL (7.4-12.2); RED BLOOD COUNT 4.24 10^6/uL (4.20-5.40)
[2018-04-27 05:23] LABS: BLOOD UREA NITROGEN 12 mg/dL (7-22); BUN/CREATININE RATIO 17.14 (6-20); SERUM ALBUMIN 3.2 g/dL (3.5-4.8)
[2018-04-27] MEDS: FLUTICASONE PROPIONATE 44 MCG INH SCH (06:58)
[2018-04-27 07:43] VITALS: RESP 18
--- NOTE | 2018-04-27 10:22 | PDOC(PROG) ---
Interval History: We did the patient's stress test this morning she is feeling great blood pressure controlled no chest pain complaints no nausea Objective : Data - Labs CBC and BMP: 04/27/18 04:30 04/27/18 04:30 Objective : Exam - General General Appearance: Cooperative - Respiratory Respiratory Exam: Clear to Auscultation - Bilaterally, Breathing Non Labored, Normal To Percussion, Normal to Percussion and Palpation - Cardiovascular Cardiovascular Exam: RRR, No Murmur, No Clicks, No Gallops, No Rubs, PMI Non- Displaced - GI/Abdominal GI/Abdominal Exam: Normal Bowel Sounds, Non Tender, Non Distended, Soft, No Masses, No Hepatomegaly, No Splenomegaly, No Organomegaly - Extremities Extremities Exam: No Clubbing Present, No Edema Present, No Cyanosis Present Assessment and Plan - Patient Problems (1) Chest pain Current Visit: Yes Status: Acute Comment: Stress test was done awaiting pictures. I did speak to Dr. Batista her he does bring up the question of the patient's hypoxia considering negative chest x-ray after surgery most likely from narcotics and hypoventilation. Sats are within normal limits at present time we will try to do the CT scan to rule out PE if possible in a.m. Code(s): R07.9 - Chest pain, unspecified (2) Dehydration Current Visit: Yes Status: Acute Comment: Resolved sodium within normal limits Code(s): E86.0 - Dehydration (3) Hypomagnesemia Current Visit: Yes Status: Acute Comment: Replace with 2 g patient's level was 1.5 considering her history is as as S VT this needs to be above 2 Code(s): E83.42 - Hypomagnesemia
[2018-04-27 11:36] VITALS: BP 167/80; TEMP 98.2
[2018-04-27] MEDS: VENLAFAXINE XR 37.5 MG CAP PO SCH (11:38)
[2018-04-27] MEDS: FAMOTIDINE 20 MG TABLET PO SCH (11:38)
[2018-04-27] MEDS: LISINOPRIL 20 MG TABLET PO SCH (11:38)
[2018-04-27] MEDS: Montelukast Tab 10 MG TAB PO SCH (11:39)
--- NOTE | 2018-04-27 11:55 | STRESSTEST ---
[facility] Interpretive Statements VERY PLEASENT 56 YO FEMALE WITH LONG STANDING DIABETES RECEMTLY HTN ADMITTED WITH CHEST PAIN.NEG TROPS .NO ACUTE CHANGES ON STRESS PORTION WILL AWAIT PICS, STARTED STRESS AT 9;[email or web address]
[2018-04-27] MEDS: OLOPATADINE HCL 0.1% OP SCH (12:12)
[2018-04-27] MEDS: Patch Removal LIDOCAINE PATCH TRANSDERM SCH (12:12)
--- NOTE | 2018-04-27 14:42 | DI ---
CT CTA Chest Non-Coronary WWO 04/27/2018 10:57 AM History: [facility] [place]hypoxia Comparison: Chest x-ray from 04/25/2018. Procedure: CT angiography of the pulmonary arteries was performed after the administration of 65 mL o f Isovue intravenous contrast. Findings: There is normal opacification of the pulmonary arteries with no evidence of filling defect. Evaluation of the lungs demonstrates bilateral lower lobe atelectasis. There is a tiny left pleural effusion. There is no dense consolidation or pneumothorax. There is a 7 mm pulmonary nodule with dens e central calcification in the anterior segment of the right upper lobe, most likely a partially calc ified granuloma versus hamartoma and not significantly changed from prior imaging. There is no medias tinal or hilar lymphadenopathy. 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 The aorta and branch vessels demonstrate otherwise normal course and caliber . Scattered atheromatous aortic and coronary artery calcifications are present. Heart size is within normal limits with no pericardial effusion. The thyroid exhibits normal CT morphology. The visualized upper abdominal structures are unremarkable. The osseous structures are normal for age with multilevel degenerative endplate changes. There is no evidence of acute or healing rib fractures. Impression: 1. No main or segmental pulmonary embolism. 2. Bilateral lower lobe atelectasis with a tiny left pleural effusion. There is no dense consolidatio n or pneumothorax. 3. Incidental note is made of an aberrant right subclavian artery. The aorta and branch vessels demon strate otherwise normal course and caliber.
--- NOTE | 2018-04-27 14:51 | DI ---
2 DAY LEXISCAN STRESS & REST MYOCARDIAL PERFUSION SCANS, 04/26/2018 7:00 AM : [place] [facility] [place]st pain Comparison: 10/11/2014. CT PE from the same day. The patient was stressed by Dr. Noble. The standard Lexiscan protocol was used. Please see the Doctor's report. Stress scans were performed on 04/27/2018; the resting scans were performed on 04/26/2018. At the designated time following commencement of stress testing, 35.8 mCi of Tc-99m Sestamibi was inj ected IV. Stress gated tomograms were acquired within one hour of the injection. For the resting scans, 35.4 mCi was injected IV and resting gated tomograms were acquired in a simila r fashion. Quantitative and qualitative analyses were performed. Quantitative analysis was performed with the [place] [facility] [id number] protocols. Very low dose limited CT scans of the chest are o btained through the level of the heart for attenuation correction of the stress and rest cardiac SPEC T data. Attenuation corrected and non-attenuation corrected scans were processed for review, and the attenuation corrected scans were used for final interpretation of this study. Gating information reveals 100 % accepted beats. There is no significant breast attenuation. There is no significant diaphragmatic attenuation. There is no significant gut cross talk. There is a small mild reversible defect in the distal anteroseptal wall. Summed Stress Score (SSS) is 3 and Summed Difference Score (SDS) is 2. There is normal wall motion. There is no significant wall thickening. Stress and rest left ventricular ejection fraction (LVEF) are 77 % and 83 %, respectively . Transient ischemic dilatation ratio (TID) is 1.05, with a normal range up to 1.2 for patients stres sed with the Jaylen protocol and up to 1.4 for patients stressed with the Lexiscan protocol. The very low dose CT scans through the level of the heart demonstrate coarse calcifications in the di stribution of the left anterior descending artery. There are also scattered atheromatous calcificatio ns in the aorta. There is no adenopathy. Heart size is normal without pericardial effusion. There is bibasilar dependent atelectasis without dense consolidation or pneumothorax. A partially calcified gr anuloma in the anterior right upper lobe was better characterized on the CT chest from the same day. Captured upper abdominal solid organs and hollow viscera are unremarkable. There are degenerative chari nges of the spine without aggressive osseous lesion. Impression: 1. There is a small mild reversible defect in the distal anteroseptal wall. SSS is 3 and SDS is 2. 2. Normal wall motion on stress and rest. 3. Stress and rest LVEF are 77 % and 83 %, respectively. 4. TID ratio is 1.05. 5. Coarse calcifications are noted in the distribution of the left anterior descending artery.
[2018-04-27 15:09] VITALS: O2SAT 97
--- NOTE | 2018-04-27 15:20 | DCSUMMARY ---
Hospitalization Summary Hospital Course: Final Discharge Diagnosis: Current Visit Problems Problem Status Onset Code Chest pain Acute R07.9 Nausea Acute R11.0 Abdominal pain Acute R10.9 Dizziness Acute R42 Weakness Acute R53.1 Dehydration Acute E86.0 Hypomagnesemia Acute E83.42 Diagnostic Data, Laboratory Data, and Procedures of Signifigance: Laboratory Results 04/26/18 04/27/18 04/27/18 23:18 04:30 04:30 WBC 4.75 L RBC 4.24 Hgb 11.2 L Hct 35.4 L MCV 83.5 MCH 26.4 L MCHC 31.6 L RDW Std Deviation 39.1 RDW Coeff of Pattie 13.1 Plt Count 241 MPV 11.3 Sodium 137 Potassium 3.9 Chloride 110 Carbon Dioxide 23 Anion Gap 4 L BUN 12 Creatinine 0.7 Estimated GFR > 60 BUN/Creatinine Ratio 17.14 Glucose 94 Calculated Osmolality 283.0 Calcium 8.3 L Magnesium 1.5 L 2.1 Total Bilirubin 0.3 D AST 22 ALT 27 Alkaline Phosphatase 71 Total Protein 5.6 L Albumin 3.2 L Globulin 2.4 L Albumin/Globulin Ratio 1.30 History and Physical pertinent to Admission: Past Medical History Medical History: 1. Type I diabetes on insulin pump. 2. Hypothyroidism. 3. History of esophageal stricture status post dilatation. 4. History of palpitation secondary to SVT, status post ablation. 5. Sleep apnea on CPAP, status post tonsillectomy today. Surgical History: 1. Ablation. 2. Tonsillectomy today. 3. Knee surgery. 4. Hand surgery. 5. History of EGD and colonoscopy. 6. History of sinus surgery Family History: Reviewed an Not Pertinent Pertinent Family History: Patient was adopted and does not know her family history Past Social History: Does not smoke, does not drink. No drugs. to Dr. Batista. Has 1 child that is a NICU nurse in [place]. Tobacco Use: Never Smoker In the Past 12 Months, Have Used or Abuse Any of the Following Substance: None Course of Hospitalization: This very nice 57-year-old female she is the for one of the [facility] [employer] here at [facility] past medical history significant for diabetes type I long-standing on insulin pump she also had SVT ablation in [place]. She is post-tonsillectomy and had an episode of possible aspiration pneumonia. Was admitted for chest pain and elevated blood pressure. Blood pressure was controlled with Norvasc 10 in the Center prole 20 her symptoms resolved after her blood pressure was controlled Lexiscan stress test showed reversible defect in the distal anteroseptal wall. I discussed the case with the patient herself and her Zak they opted to be seen by Jose Alejandro botello at [facility] patient was accepted by Dr. Urbina and will be transferred by ambulance. Her magnesium was replaced and is 2.1 today from 1.5 patient is stable. Also CT of the chest reveals no PE or pneumonia just bilateral lower lobe atelectasis On the date of discharge, the patient was examined: Gen.: No acute distress, alert, nontoxic Heart: Regular rate and rhythm, no murmurs, clicks, gallops, or rubs Lungs: Clear to auscultation bilaterally, breathing is nonlabored Abdomen/GI: Normal tones on auscultation, soft, nontender, nondistended Musculoskeletal/extremities: No clubbing, cyanosis, or edema Vitals reviewed and are listed below Assessment and Plan: 1. As per discharge assessments above 2. Disposition: [facility] 3. Condition on discharge, stable and improved. 4. Diet: regular diet 5. Activities: resume normal activities 6. Follow-Up: 1. PCP 2. 7. Medications at the Time of Discharge: Home Medications Medication Instructions Recorded Confirmed Type Insulin Pump Cartridge [Cartridge 1 ea SQ continuous #3 box 04/21/13 04/25/18 History Stamped] Lidocaine [Lidoderm] 1 patch TRANSDERM DAILY #90 patch 10/01/16 Clinic Promethazine HCl 1 tab PO Q4-6H PRN #60 tab 10/01/16 Clinic Levothyroxine Sodium 1 tab PO DAILY #90 tab 10/14/16 Clinic Venlafaxine HCl [Venlafaxine Hcl 1 cap PO DAILY #30 cap 10/22/16 Clinic Er] promethazine 25 mg tablet 25 mg PO Q4-6H PRN #60 tab 12/18/16 04/25/18 Rx ciclopirox 8 % topical solution 1 applic TOPICAL QDAY #1 bottle 03/14/17 04/25/18 History insulin lispro (U- 100) 100 8 unit SQ AC #1 box 05/19/17 04/25/18 Rx unit/mL subcutaneous pen blood-glucose meter 1 ea MISCELLANEOUS 6-12x/day ea 05/22/17 04/25/18 History Synthroid 125 mcg tablet 125 mcg PO QDAY #90 tab NS 06/30/17 04/25/18 Rx lidocaine 5 % topical patch 1 patch TOPICAL QHS #90 ea 06/30/17 04/25/18 Rx olopatadine 0.1 % eye drops 1 drp OP QDAY #3 bottle 07/01/17 04/25/18 Rx acetone (urine) test strips 1 strip MISCELLANEOUS QAM #50 strip 08/25/17 04/25/18 Rx docusate sodium 100 mg capsule 400 mg PO QHS #90 cap 09/10/17 04/25/18 Rx zolpidem 10 mg tablet 10 mg PO QHS PRN #90 tab 09/10/17 04/25/18 Rx clobetasol 0.05 % topical ointment 1 applic TOPICAL BID PRN #60 g 10/24/17 04/25/18 Rx metoclopramide 5 mg/5 mL oral 10 mg PO QID PRN #360 ml 10/24/17 04/25/18 Rx solution famotidine 20 mg tablet 20 mg PO BID #120 tab 11/04/17 04/25/18 Rx insulin glargine (U-100) 100 4 unit SUBCUT BID PRN #3 ml 11/18/17 04/25/18 Rx unit/mL (3 mL) subcutaneous pen venlafaxine ER 37.5 mg 37.5 mg PO QDAY #90 cap 11/28/17 04/25/18 Rx capsule,extended release 24 hr estradiol 10 mcg vaginal tablet 10 mcg VAGINAL 3XW #36 tab 12/29/17 04/25/18 Rx blood sugar diagnostic strips 1 strip MISCELLANEOUS 10XD #900 02/25/18 04/25/18 Rx strip levalbuterol HFA 45 mcg/actuation 2 puff INH Q6H PRN #3 inh 02/26/18 04/25/18 Rx aerosol inhaler fluticasone 44 mcg/actuation HFA 2 inh INH BID #1 inh 03/30/18 04/25/18 Rx aerosol inhaler montelukast 10 mg tablet 10 mg PO QDAY #60 tab 04/08/18 04/25/18 Rx C-Pap 04/17/18 History Amoxicillin Susp 500 mg PO Q8H 10 Days #150 ml 04/20/18 04/25/18 Rx HYDROcodone/APAP 7.5/325/15ml 10 - 15 ml PO Q4H PRN #240 cp 04/20/18 04/25/18 Rx [Lortab 7.5mg/325mg per 15ml Soln] Amoxicillin/K Clav Susp [Augmentin 800 mg PO BID #90 ml 04/24/18 04/25/18 Rx Susp] 8. Time, care, counseling and coordination of care for this discharge is greater than 30 minutes. Exam - Vitals Vital Signs: Vital Signs Temperature 98.2 F Temperature Source Temporal Artery Scan Pulse Rate [Pulse Oximeter 88 Right] Pulse Rate 63 Respiratory Rate 18 Blood Pressure [Left Arm] 167/80 Blood Pressure 125/87 Pulse Ox 97 Oxygen Flow Rate 1 Oxygen Delivery Method Room Air Height 5 ft 3 in Weight 199 lb 6.4 oz Patient Problems - Patient Problem List (1) Chest pain Current Visit: Yes Status: Acute Code(s): R07.9 - Chest pain, unspecified Category: Medical (2) Dehydration Current Visit: Yes Status: Acute Code(s): E86.0 - Dehydration Category: Medical (3) Hypomagnesemia Current Visit: Yes Status: Acute Code(s): E83.42 - Hypomagnesemia Category: Medical
[2018-04-27] MEDS ORDERED: ISOSORBIDE MONONITRATE 30 MG SR 24H TABLET PO SCH (16:15)
== END 2018-04-27 17:00 | disposition home or self-care (01) ==
LOC: MED/SURG 14:02 → ER 14:02 → MED/SURG 17:36
PROVIDERS: ADMIT Internal Medicine; ATTEND Internal Medicine